=== PATIENT | male | born 1970 | race Caucasian/White ===

== ENCOUNTER 2023-03-12 10:17 | Inpatient (IN) ==
[2023-03-12] MEDS ORDERED: ALBUT/IPRATROP 3MG/0.5MG NEB 3 ML VIAL NEB STA ×2 (10:34→13:22)
--- NOTE | 2023-03-12 10:38 | Emergency Department Note ---
History of Present Illness General Chief complaint: Shortness of Breath/Dyspnea Time Seen by Provider: 03/12/23 10:26 History of Present Illness 52-year-old male with a history of cerebral palsy [facility] and EMS was called for respiratory distress. Reportedly patient has significant wheezing and cough. Patient was given DuoNeb x2 as well as 125 mg of IV Solu- Medrol. Patient denies any hemoptysis patient denies chest pain or fever. Patient denies prior history of pneumonia. Patient states he slightly improved after neb treatment. There are no other complaints. No other mitigating or al leviating factors Home Medications Medication Instructions Recorded Confirmed Type lisinopril 20 mg tablet 0 mg PO DAILY 01/16/20 01/02/21 History finasteride 5 mg tablet mg PO .Take one tablet daily 01/26/20 01/02/21 History gabapentin 300 mg capsule mg PO 01/26/20 01/02/21 History silodosin 8 mg capsule mg PO .TAKE 1 CAPSULE DAILY WITH 01/26/20 01/02/21 History FOOD. tramadol 50 mg tablet 50 mg PO 01/26/20 01/02/21 History finasteride 5 mg tablet 5 mg PO DAILY #90 tabs 01/02/21 01/02/21 Rx silodosin 8 mg capsule 8 mg PO DAILY #90 caps 06/13/22 Rx albuterol sulfate 90 mcg/actuation 1 inh inhalation Q4H PRN shortness 03/12/23 Rx aerosol inhaler of breath or wheezing #6.7 grams azithromycin 250 mg tablet See Rx Instructions PO .COMPLEX #6 03/12/23 Rx (Zithromax Z-Ced) tabs Allergies Allergy/AdvReac Type Severity Reaction Status Date / Time morphine Allergy Verified 01/02/21 09:14 Past Med/Surg History Medical History (Updated 03/12/23 @ 13:19 by Nba Zelaya DO) Cerebral palsy Hypertension Prostate enlargement Urinary retention Surgical History Hx of foot surgery Family History Mother Diabetes Father Cardiac disorder Hypertension Nephrolithiasis Brother Hypertension Nephrolithiasis Uncle Prostate cancer Other Colorectal cancer Social History Smoking Status: Former smoker Tobacco Type: Cigarettes Preferred Language: Botswanan marital status: Feels Safe at Home: Yes Review of Systems A total of 10 systems reviewed and were otherwise negative Respiratory: + chest congestion and + dyspnea Physical Exam Vital Signs Vital Signs - 24 hr 03/12/23 10:32 03/12/23 10:35 03/12/23 10:35 Temperature 36.8 C Temperature Source Oral Pulse Rate 83 94 H Pulse Rate from SpO2 Sensor Respiratory Rate 26 H Respiratory Effort / Characteristics Short of Breath SOB on Exertion Spontaneous Short of Breath SOB on Exertion Respiratory Depth Normal Normal Respiratory Pattern Tachypnea Tachypnea Blood Pressure 165/90 H Blood Pressure Mean 115 Pulse Oximetry 88 L Oxygen Delivery Method Nasal Cannula Room Air Oxygen Flow Rate 4 Sepsis Recent Fever Within 48 Hours No Sepsis New/Unexplained Change in Mental Status No Sepsis Action Taken by Nursing No Action Required 03/12/23 10:30 03/12/23 11:00 03/12/23 11:15 Temperature Temperature Source Pulse Rate 82 77 78 Pulse Rate from SpO2 Sensor 83 76 79 Respiratory Rate 17 15 16 Respiratory Effort / Characteristics Respiratory Depth Respiratory Pattern Blood Pressure 158/97 H 165/90 H Blood Pressure Mean 117 115 Pulse Oximetry 94 98 95 Oxygen Delivery Method Oxygen Flow Rate Sepsis Recent Fever Within 48 Hours Sepsis New/Unexplained Change in Mental Status Sepsis Action Taken by Nursing 03/12/23 11:30 03/12/23 11:45 03/12/23 12:15 Temperature Temperature Source Pulse Rate 77 93 H 79 Pulse Rate from SpO2 Sensor 77 91 H 78 Respiratory Rate 13 16 14 Respiratory Effort / Characteristics Respiratory Depth Respiratory Pattern Blood Pressure 141/89 H 127/96 153/89 H Blood Pressure Mean 106 106 110 Pulse Oximetry 96 95 97 Oxygen Delivery Method Nasal Cannula Oxygen Flow Rate 4 4 4 Sepsis Recent Fever Within 48 Hours Sepsis New/Unexplained Change in Mental Status Sepsis Action Taken by Nursing 03/12/23 12:30 03/12/23 12:45 03/12/23 13:00 Temperature Temperature Source Pulse Rate 88 86 86 Pulse Rate from SpO2 Sensor 84 85 87 Respiratory Rate 17 16 16 Respiratory Effort / Characteristics Respiratory Depth Respiratory Pattern Blood Pressure 146/98 H 140/100 159/100 H Blood Pressure Mean 114 113 119 Pulse Oximetry 96 94 90 Oxygen Delivery Method Room Air Oxygen Flow Rate 4 Sepsis Recent Fever Within 48 Hours Sepsis New/Unexplained Change in Mental Status Sepsis Action Taken by Nursing GENERAL: Patient is awake alert in no acute distress patient is resting comfortably ; patient has audible wheezing EYES: The conjunctivae are clear. The pupils are round and reactive. EARS, NOSE, MOUTH AND THROAT: The nose is without any evidence of any deformity. Mucous membranes are moist. Tongue is midline. NECK: The neck is nontender and supple. RESPIRATORY: Normal respiratory effort, audible wheezing CARDIOVASCULAR: Regular rate and rhythm noted there no murmurs rubs or gallops normal S1 normal S2. GASTROINTESTINAL: The abdomen is soft. Abdomen is nontender. BACK: No midline tenderness or or step-off noted range of motion in flexion extension as well as rotation no signs of muscle spasm noted MUSCULOSKELETAL/EXTREMITIES: No signs of trauma SKIN: There is no obvious evidence of any rash. There are no petechiae, pallor or cyanosis noted. NEUROLOGIC: Patient is awake alert and oriented x3 Psych normal affect Course Reevaluation(s) Reevaluation #1: Patient is resting in no distress on repeat examination. Time: 12:35 Reevaluation #2: Patient had continued wheezing on repeat when taken off 4 L of oxygen he had a pulse oximetry that went below 90%. He is not in any respiratory distress ronan jules. Patient was then given another DuoNeb treatment. Patient will be admitted Time: 13:44 Consultations Consultation #1: [facility]ol[facility] Time: 13:44 Administered Medications Discontinued Medications Albuterol (Albut/Ipratrop 3mg/0.5mg Neb 3 Ml Vial) 3 ml NEB NOW STA; Protocol Stop: 03/12/23 10:35 Last Admin: 03/12/23 10:54 Dose: 3 ml Documented By: TK Albuterol (Albut/Ipratrop 3mg/0.5mg Neb 3 Ml Vial) 3 ml NEB NOW STA; Protocol Stop: 03/12/23 13:23 Last Admin: 03/12/23 13:29 Dose: 3 ml Documented By: JEREMY Critical Care Time Critical Care Time: Yes Total Critical Care Time: 35 I have personally spent greater than 35 minutes of critical care time in the direct management of this patient. This includes bedside care, interpretation of diagnostic studies, and testing, discussion with consultants, patient, and family members, and other required patient management activities. These minutes are in excess of all separately billable procedures. Medical Decision Making Medical Records Attestation: I reviewed the patient's medical records. Home Medications Current Medication List: was personally reviewed by me Laboratory Data Attestation: I reviewed the patient's lab results. Labs interpreted by me unremarkable 03/12/23 10:35 03/12/23 10:35 Lab Results 03/12/23 03/12/23 03/12/23 Range/Units 10:35 10:35 10:35 WBC 8.17 (4.8-10.8) K/ul RBC 5.68 (4.70-6.10) M/uL Hgb 16.4 (14.0-18.0) g/dl Hct 48.6 (42.0-52.0) % MCV 85.6 (80.0-100.0) fL MCH 28.9 (25.0-34.0) pg MCHC 33.7 (32.0-36.0) g/dL RDW Std Deviation 42.1 (36.4-46.3) fL RDW Coeff of Tha 13.7 (11.5-14.5) % Plt Count 311 (130-400) K/uL MPV 10.7 (9.4-12.4) fL Immature Gran % (Auto) 0.2 % Neut % (Auto) 48.4 % Lymph % (Auto) 29.3 % [place] % (Auto) 5.6 % Eos % (Auto) 14.9 % Baso % (Auto) 1.6 % Neut # (Auto) 3.95 (1.40-6.50) K/uL Lymph # (Auto) 2.39 (1.2-3.4) K/uL [place] # (Auto) 0.46 (0.11-0.59) K/uL Eos # (Auto) 1.22 H (0-0.50) K/uL Baso # (Auto) 0.13 (0-0.2) K/uL Immature Gran # (Auto) 0.02 (0.01-0.20) K/uL Sodium 142 (136-145) mmol/L Potassium 3.4 L (3.5-5.1) mmol/L Chloride 106 (98-107) mmol/L Carbon Dioxide 24 (21-32) mmol/L Anion Gap 12 H (3-11) BUN 12 (6-23) mg/dl Creatinine 0.81 (0.6-1.4) mg/dl Est Cr Clr Drug Dosing 90.5 ml/min Est GFR ( Amer) 116.8 ml/min Est GFR (Non-Af Amer) 100.8 ml/min BUN/Creatinine Ratio 14.8 (10-20) Glucose 114 H (70-99(Fasting)) mg/dl Lactate (0.4-2.0) mmol/L Calcium 9.3 (8.6-10.3) mg/dl Magnesium 2.1 (1.7-2.4) mg/dl Total Bilirubin 0.8 (0.2-1.0) mg/dl Direct Bilirubin 0.2 (0-0.2) mg/dl AST 13 (13-39) U/L ALT 12 (7-52) U/L Alkaline Phosphatase 98 (34-104) U/L Troponin I High Sens 3.6 (0-20) pg/ml Total Protein 7.5 (6.0-8.3) gm/dl Albumin 4.4 (3.4-5.0) gm/dl Procalcitonin < 0.05 (0-0.5) ng/ml SARS-CoV-2, RNA, NAAT (NEGATIVE) 03/12/23 03/12/23 Range/Units 10:46 11:07 WBC (4.8-10.8) K/ul RBC (4.70-6.10) M/uL Hgb (14.0-18.0) g/dl Hct (42.0-52.0) % MCV (80.0-100.0) fL MCH (25.0-34.0) pg MCHC (32.0-36.0) g/dL RDW Std Deviation (36.4-46.3) fL RDW Coeff of Tha (11.5-14.5) % Plt Count (130-400) K/uL MPV (9.4-12.4) fL Immature Gran % (Auto) % Neut % (Auto) % Lymph % (Auto) % [place] % (Auto) % Eos % (Auto) % Baso % (Auto) % Neut # (Auto) (1.40-6.50) K/uL Lymph # (Auto) (1.2-3.4) K/uL [place] # (Auto) (0.11-0.59) K/uL Eos # (Auto) (0-0.50) K/uL Baso # (Auto) (0-0.2) K/uL Immature Gran # (Auto) (0.01-0.20) K/uL Sodium (136-145) mmol/L Potassium (3.5-5.1) mmol/L Chloride (98-107) mmol/L Carbon Dioxide (21-32) mmol/L Anion Gap (3-11) BUN (6-23) mg/dl Creatinine (0.6-1.4) mg/dl Est Cr Clr Drug Dosing ml/min Est GFR ( Amer) ml/min Est GFR (Non-Af Amer) ml/min BUN/Creatinine Ratio (10-20) Glucose (70-99(Fasting)) mg/dl Lactate 1.2 (0.4-2.0) mmol/L Calcium (8.6-10.3) mg/dl Magnesium (1.7-2.4) mg/dl Total Bilirubin (0.2-1.0) mg/dl Direct Bilirubin (0-0.2) mg/dl AST (13-39) U/L ALT (7-52) U/L Alkaline Phosphatase (34-104) U/L Troponin I High Sens (0-20) pg/ml Total Protein (6.0-8.3) gm/dl Albumin (3.4-5.0) gm/dl Procalcitonin (0-0.5) ng/ml SARS-CoV-2, RNA, NAAT NEGATIVE (NEGATIVE) Imaging Data Attestation: I personally reviewed and interpreted this imaging study as follows : My Impression: Chest x-ray interpreted by me negative Radiologist's Impression: Chest X-Ray 03/12/23 10:35 XR chest 1V portable HISTORY: 52 years-old Male Sepsis acute sepsis COMPARISON: None TECHNIQUE: AP view of the chest FINDINGS: Mild right hemidiaphragmatic elevation. Cardiomediastinal and hilar silhouettes are within normal limits. No pneumothorax, pleural effusion, airspace consolidation or pulmonary edema. Bones appear grossly intact. IMPRESSION: No acute process. ACT 112: Negative or not required by law. The above report was generated using voice recognition software. It may contain grammatical, syntax or spelling errors. Electronically signed by: Gabriel Garcia M.D. 03/12/2023 10:56 AM ECG Data Attestation: I personally reviewed and interpreted this ECG as follows: Additional Comments: EKG interpreted by me, normal sinus rhythm rate of 85, normal intervals normal axis, no obvious ST segment elevation or depression Telemetry interpreted by me is normal sinus rhythm rate of 85 MDM Narrative Medical decision making differential diagnosis includes pneumonia, bronchitis, upper respiratory tract infection, COPD, CHF, metabolic derangement, cardiac dysrhythmia Plan is to check labs, initiate sepsis protocol, DuoNeb treatment patient has received IV Solu-Medrol by EMS prior to arrival External medical records were reviewed by me from the [facility] Patient has normal labs, I do not suspect sepsis, the patient has no evidence of pneumonia, patient continues to have bronchiolitis and hypoxia, was given DuoNebs and IV Solu-Medrol. I will admit for further evaluation and treatment due to hypoxia and bronchiolitis Impression & Plan Bronchitis, Hypoxia, Bronchiolitis Discharge Plan Visit Data Chief Complaint: Shortness of Breath/Dyspnea ED Provider: Nba Zelaya Discharge Problem: Bronchitis, Hypoxia, Bronchiolitis Patient Disposition: Admitted As Inpatient Forms Stand Alone Forms: My [facility], Virtual Emergency Department, Important Visit Information Prescriptions Prescriptions: New albuterol sulfate 90 mcg/actuation HFA aerosol inhaler 1 inh inhalation Q4H PRN (Reason: shortness of breath or wheezing) Qty: 6.7 0RF azithromycin [Zithromax Z-Ced] 250 mg tablet See Rx Instructions .ROUTE .COMPLEX Qty: 6 0RF Rx Instructions: For 250 mg dose pack: take 500 mg today (day 1), then 250 mg for 4 days (days 2-5) No Action silodosin 8 mg capsule 8 mg PO DAILY Qty: 90 3RF Rx Instructions: must administer with a meal/food finasteride 5 mg tablet 5 mg PO DAILY Qty: 90 3RF gabapentin 300 mg capsule PO tramadol 50 mg tablet 50 mg PO silodosin 8 mg capsule PO .TAKE 1 CAPSULE DAILY WITH FOOD. finasteride 5 mg tablet PO .Take one tablet daily lisinopril 20 mg tablet 0 mg PO DAILY Referrals Referrals: Ryann Grady PA-C [Outside Practitioners] -
--- NOTE | 2023-03-12 10:57 | XRay Report ---
XR chest 1V portable HISTORY: 52 years-old Male Sepsis acute sepsis COMPARISON: None TECHNIQUE: AP view of the chest FINDINGS: Mild right hemidiaphragmatic elevation. Cardiomediastinal and hilar silhouettes are within normal lira its. No pneumothorax, pleural effusion, airspace consolidation or pulmonary edema. Bones appear gross ly intact. IMPRESSION: No acute process. ACT 112: Negative or not required by law. The above report was generated using voice recognition software. It may contain grammatical, syntax o r spelling errors. Electronically signed by: Gabriel Garcia M.D. 03/12/2023 10:56 AM
[2023-03-12 11:17] LABS: Basophils # (auto) 0.13 K/uL (0-0.2); Basophils % (auto) 1.6 %; Eosinophils # (auto) 1.22 K/uL (0-0.50); Eosinophils % (auto) 14.9 %; Hematocrit (blood only) 48.6 % (42.0-52.0); Hemoglobin 16.4 g/dl (14.0-18.0); Immature Granulocytes # (auto) 0.02 K/uL (0.01-0.20); Immature Granulocytes % (auto) 0.2 %; Lymphocytes # (auto) 2.39 K/uL (1.2-3.4); Lymphocytes % (auto) 29.3 %; Mean Corpuscular Hemoglobin 28.9 pg (25.0-34.0); Mean Corpuscular Hgb Conc 33.7 g/dL (32.0-36.0); Mean Corpuscular Volume 85.6 fL (80.0-100.0); Mean Platelet Volume 10.7 fL (9.4-12.4); Monocytes # (auto) 0.46 K/uL (0.11-0.59); Monocytes % (auto) 5.6 %; Neutrophils # (auto) 3.95 K/uL (1.40-6.50); Neutrophils % (auto) 48.4 %; Platelet Count 311 K/uL (130-400); RDW Coefficient of Variation 13.7 % (11.5-14.5); RDW Standard Deviation 42.1 fL (36.4-46.3); Red Blood Count 5.68 M/uL (4.70-6.10); White Blood Count 8.17 K/ul (4.8-10.8)
[2023-03-12 11:25] LABS: Albumin Level 4.4 gm/dl (3.4-5.0); BUN Creatinine Ratio 14.8 (10-20); Bilirubin Direct 0.2 mg/dl (0-0.2); Bilirubin,Total 0.8 mg/dl (0.2-1.0); Calcium 9.3 mg/dl (8.6-10.3); Creatinine Clr Calc Pharmacy 90.5 ml/min; Est GFR (African American) 116.8 ml/min; Est GFR (Non-African American) 100.8 ml/min; Magnesium 2.1 mg/dl (1.7-2.4); Potassium 3.4 mmol/L (3.5-5.1); Total Protein 7.5 gm/dl (6.0-8.3)
[2023-03-12 11:30] LABS: Troponin I High Sensitivity 3.6 pg/ml (0-20)
--- NOTE | 2023-03-12 13:59 | History & Physical Report ---
Date of Service March 12, 2023 Assessment & Plan (1) Acute respiratory failure with hypoxia: Plan: Patient is a 52-year-old male with PMH cerebral palsy, uses wheelchair, HTN, BPH presented to ER from PCP's office for SOB, ongoing cough and wheezing x months. Failed 3 courses outpatient doxycycline, course of prednisone. In clinic today noted to be SOB and hypoxic. In ER afebrile, 88% on RA up to 94% on 4L oxygen, P: 106. No leukocytosis, Lactate and procalcitonin WNL. ABG: pH: 7.43, pCO2:35, pO2: 84, HCO3: 23 Negative Biofire, SARS Cov 2 D-dimer:1060 DDX: bronchitis, COPD/asthma exacerbation, PE. Suspect possible underlying undiagnosed COPD or asthma with symptoms, history of tobacco use CTA chest to rule out PE Continue supplemental oxygen Solumedrol 40mg Q8H Azithromycin Scheduled nebs Consider pulmonology consult if no improvement CBC, BMP in am (2) Hypokalemia: Plan: K: 3.4 Replace and monitor (3) Hypertension: Plan: Continue lisinopril (4) Cerebral palsy: Plan: Uses wheelchair Continue gabapentin, tizanidine (5) Benign prostatic hyperplasia with urinary obstruction: Plan: Continue finasteride, silodosin DVT Prophylaxis Lovenox SQ Full Code as per discussion with pt Follows with Dixie Holguin PA-C for routine care Pt was seen and care coordinated with Dr Stenier. See addendum I spent a total of 80 minutes reviewing notes, outpatient records, labs, medication, coordinating, documenting and providing care for this patient excluding time spent in the performance of separately billed services. (6) Acute urinary retention: History of Present Illness Chief Complaint: Cough Primary Care Provider: Dixie Holguin PA-C Patient is a 52-year-old male with PMH cerebral palsy, uses wheelchair, HTN, BPH presented to ER from PCP's office for SOB. History obtained from patient and chart review. Patient states for the last several months he has been having ongoing cough. Reports several months ago started with slight sore throat, nasal congestion, cough. Reports sore throat and nasal congestion have resolved. Cough has continued. Cough is productive of clear sputum. Per outpatient chart review seen at PCPs office 01/15/2023 for cough for several months and was started on doxycycline x 7 days and albuterol inhaler for suspected bronchitis. 01/27/23 given additional doxycycline course. Seen again on 02/13/2023 for cough, wheezing, nasal congestion. He was given doxycycline x10 days, prednisone taper, and had been using albuterol inhaler. Patient states despite these treatments cough has continued. He has been using albuterol inhaler 1-2 times a day with some improvement of cough however limited relief. H states he does not feel he is short of breath however has noted wheezing. He reports initially several months ago did not have wheezing however wheezing has progressed. In clinic today patient was noted to be short of breath, diffuse wheezing. It is reported patient's pulse ox in the high 80s and went up to 90% on 4 L. EMS was called and patient was given 2 DuoNebs in route. In ER 88% on RA up to 94% on 4L oxygen via NC. Patient given additional albuterol neb treatment in ER. Patient states feels like wheezing less. He states does not feel SOB but endorses has not noted SOB. Denies fever/chills, diaphoresis, N/V/D/C, [place], dizziness, syncope, vision changes, neck pain, CP, orthopnea, palpitations, hemoptysis, choking, otalgia, abdominal pain, paresthesias, extremity edema, rashes, urinary symptoms. History smoking 1/2ppd x 30 years, Quit 5 years ago Allergies Allergy/AdvReac Type Severity Reaction Status Date / Time morphine Allergy Verified 01/02/21 09:14 Home Medications Medication Instructions Recorded Confirmed Type lisinopril 20 mg tablet 20 mg PO DAILY 01/16/20 03/12/23 History gabapentin 300 mg capsule 300 mg PO TID 01/26/20 03/12/23 History finasteride 5 mg tablet 5 mg PO DAILY #90 tabs 01/02/21 03/12/23 Rx silodosin 8 mg capsule 8 mg PO DAILY #90 caps 06/13/22 03/12/23 Rx albuterol sulfate 90 mcg/actuation 1 inh inhalation Q4H PRN shortness 03/12/23 Rx aerosol inhaler of breath or wheezing #6.7 grams levocetirizine 5 mg tablet 5 mg PO HS 03/12/23 03/12/23 History mirtazapine 15 mg tablet 15 mg PO HS 03/12/23 03/12/23 History tizanidine 2 mg tablet 1 mg PO Q6H PRN Muscle Spasm 03/12/23 03/12/23 History Past Med/Surg History Medical History (Updated 03/12/23 @ 17:19 by Mandy Diaz PA-C) Cerebral palsy Hypertension Prostate enlargement Urinary retention Surgical History Hx of foot surgery Family History Mother Diabetes Father Cardiac disorder Hypertension Nephrolithiasis Brother Hypertension Nephrolithiasis Uncle Prostate cancer Other Colorectal cancer Social History Smoking Status: Former smoker Tobacco Type: Cigarettes Hx Alcohol Use: No Hx Substance Use: No Preferred Language: Tajik [employer] 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 Required: No Beliefs That Will Affect Care: None marital status: Current Living Situation: Alone Feels Safe at Home: Yes Assistive Devices: Glasses and Wheelchair Review of Systems Review of Systems: All systems reviewed & are unremarkable except as noted in HPI & below Physical Exam Physical Exam: General: no apparent distress, WDWN Head: normocephalic, atraumatic Eyes: conjunctiva non-injected, anicteric ENT: normal inspection external ears, nose, mucous membranes moist Neck: supple, trachea midline Lungs: no apparent respiratory distress on 3L oxygen via NC, able to speak in sentences, +diffuse wheezing, no rhonchi/rales noted CV: RRR, no murmur, no pretibial edema Abd: normal BS, soft, non-tender Ext: no cyanosis, no calf tenderness Neuro: A&O x 3, LE weakness (chronic) no other focal deficits noted, normal affect Skin: warm, dry Results & Data Results & Data Vital Signs (Past 12 Hours) Vital Signs Temp Pulse Resp BP Pulse Ox O2 Del Method O2 Flow Rate 03/12/23 13:00 86 16 159/100 H 90 Room Air 03/12/23 12:45 86 16 140/100 94 03/12/23 12:30 88 17 146/98 H 96 4 03/12/23 12:15 79 14 153/89 H 97 Nasal Cannula 4 03/12/23 11:45 93 H 16 127/96 95 4 03/12/23 11:30 77 13 141/89 H 96 4 03/12/23 11:15 78 16 95 03/12/23 11:00 77 15 165/90 H 98 03/12/23 10:30 82 17 158/97 H 94 03/12/23 10:35 36.8 C 94 H 26 H 165/90 H 88 L Room Air 03/12/23 10:35 Nasal Cannula 4 03/12/23 10:32 83 Laboratory Results Short CBC 03/12/23 Range/Units 10:35 WBC 8.17 (4.8-10.8) K/ul Hgb 16.4 (14.0-18.0) g/dl Hct 48.6 (42.0-52.0) % Plt Count 311 (130-400) K/uL BMP 03/12/23 10:35 Sodium 142 Potassium 3.4 L Chloride 106 Carbon Dioxide 24 BUN 12 Creatinine 0.81 Glucose 114 H Calcium 9.3 Liver Function 03/12/23 Range/Units 10:35 Total Bilirubin 0.8 (0.2-1.0) mg/dl Direct Bilirubin 0.2 (0-0.2) mg/dl AST 13 (13-39) U/L ALT 12 (7-52) U/L Alkaline Phosphatase 98 (34-104) U/L Albumin 4.4 (3.4-5.0) gm/dl Diagnostic Findings Chest X-Ray 03/12/23 10:35 XR chest 1V portable HISTORY: 52 years-old Male Sepsis acute sepsis COMPARISON: None TECHNIQUE: AP view of the chest FINDINGS: Mild right hemidiaphragmatic elevation. Cardiomediastinal and hilar silhouettes are within normal limits. No pneumothorax, pleural effusion, airspace consolidation or pulmonary edema. Bones appear grossly intact. IMPRESSION: No acute process. ACT 112: Negative or not required by law. The above report was generated using voice recognition software. It may contain grammatical, syntax or spelling errors. Electronically signed by: Gabriel Garcia M.D. 03/12/2023 10:56 AM ECG Rate (beats per minute): 85 Rhythm: sinus rhythm Additional Comments: per my interpretation Supervising Physician Co-Signing Physician Notes I have seen and examined the patient and have discussed the case with the provider above. I agree with the assessment and plan as stated with the following exceptions. 52 yo man with cerebral palsy presents with worsening respiratory symptoms and hypoxia. He reports a significant amount of mucous in his throat. Per outpatient record review, he was given multiple courses of doxycycline/pred taper without improvement. He was sent in from his PCP office and reports feeling better with the oxygen in place and after the breathing treatments. He denies significant cough, fevers, chills or SOB. Patient has CP and possibly some intellectual delay as a result limiting history. Records reveal he is wheelchair bound. He reports living alone. He quit smoking 5 years ago. On exam he has significant wheezing in the anterior lung weston bilaterally. Posterior breath sounds are clear with good diaphragmatic excursion. No increased respiratory effort. CV: S1/2 heard without murmur. Reg rate and rhythm, He appears euvolemic to dry. Mentating clearly and following instructions. Workup in the ER reveals CBC with normal WBC count but with evidence of peripheral eosinophilia. Possible undiagnosed asthma vs allergies given clinical picture? Per outpatient record review, he has never had a CBC with differential performed, so there is no baseline. Also, he has not had PFTs. Chem panel is WNL, blood gas is normal and biofire panel is negative. A CXR reveals no acute process. D dimer> [address] chest is pending to rule out PE. EKG reviewed by me and shows SR85 with no ST changes that would be consistent with acute ischemia. 1. Acute respiratory failure with Wheezing possibly 2/2 undiagnosed asthma or COPD with exacerbation 2. Peripheral eosinophilia 3. Cerebral palsy, with limited mobility As noted on H&P and above, he has failed 3 courses of outpatient prednisone and doxycycline. Agree with intravenous steroids, intravenous azithromycin and nebulized bronchodilators. Wean off oxygen as tolerated. Repeat CBC with diff in am to monitor eosinophilia. May be prudent to see pulmonology or an seo executive if he has a history of recurrent pulmonary issues. Defer to PCP. Outpatient PFTs recommended after current exacerbation is resolved. Cont supportive care efforts and monitor clinical response to therapy. Acute urinary retention seen in ER with falk placed. He was started on flomax and has a h/o this in records. UA sample has yet to be collected. RN notified to collect as able. DO Jatin
[2023-03-12 15:29] LABS: Adenovirus PCR Not Detected (NotDetected); Bordetella parapertussis PCR Not Detected (NotDetected); Bordetella pertussis PCR Not Detected (NotDetected); Chlamydia pneumoniae PCR Not Detected (NotDetected); Coronavirus 229E PCR Not Detected (NotDetected); Coronavirus CoV-2 (COVID19)PCR Not Detected (NotDetected); Coronavirus HKU1 PCR Not Detected (NotDetected); Coronavirus NL63 PCR Not Detected (NotDetected); Coronavirus OC43PCR Not Detected (NotDetected); Human Metapneumovirus PCR Not Detected (NotDetected); Influenza A PCR Not Detected (NotDetected); Influenza B PCR Not Detected (NotDetected); Mycoplasma pneumoniae PCR Not Detected (NotDetected); Parainfluenza Virus 1 PCR Not Detected (NotDetected); Parainfluenza Virus 2 PCR Not Detected (NotDetected); Parainfluenza Virus 3 PCR Not Detected (NotDetected); Parainfluenza Virus 4 PCR Not Detected (NotDetected); Respiratory Syncytial VirusPCR Not Detected (NotDetected); Rhinovirus/Enterovirus PCR Not Detected (NotDetected)
[2023-03-12 15:50] LABS: Base Excess ABG -0.6 mEq/L (-9-1.8); HCO3 ABG 23 mmol/L (19-24); Oxygen Saturation ABG 98.5 % (90-95); PCO2 ABG 35 mmHg (35-46); PO2 ABG 84 mmHg (80-95); pH ABG 7.43 (7.35-7.45)
[2023-03-12 15:55] LABS: Allen Test POS (Pos)
[2023-03-12 16:30] LABS: D Dimer 1060 ug/L FEU (0-500)
--- NOTE | 2023-03-12 17:19 | Communication Note ---
Date of Service: March 12, 2023 ATTENDING ADDENDUM TO H&P: 52 yo man with cerebral palsy presents with worsening respiratory symptoms and hypoxia. He reports a significant amount of mucous in his throat. Per outpatient record review, he was given multiple courses of doxycycline/pred taper without improvement. He was sent in from his PCP office and reports feeling better with the oxygen in place and after the breathing treatments. He denies significant cough, fevers, chills or SOB. Patient has CP and possibly some intellectual delay as a result limiting history. Records reveal he is wheelchair bound. He reports living alone. He quit smoking 5 years ago. On exam he has significant wheezing in the anterior lung weston bilaterally. Posterior breath sounds are clear with good diaphragmatic excursion. No increased respiratory effort. CV: S1/2 heard without murmur. Reg rate and rhythm, He appears euvolemic to dry. Mentating clearly and following instructions. Workup in the ER reveals CBC with normal WBC count but with evidence of peripheral eosinophilia. Possible undiagnosed asthma vs allergies given clinical picture? Per outpatient record review, he has never had a CBC with differential performed, so there is no baseline. Also, he has not had PFTs. Chem panel is WNL, blood gas is normal and biofire panel is negative. A CXR reveals no acute process. D dimer> [address] chest is pending to rule out PE. EKG reviewed by me and shows SR85 with no ST changes that would be consistent with acute ischemia. 1. Acute respiratory failure with Wheezing possibly 2/2 undiagnosed asthma or COPD with exacerbation 2. Peripheral eosinophilia 3. Cerebral palsy, with limited mobility As noted on H&P and above, he has failed 3 courses of outpatient prednisone and doxycycline. Agree with intravenous steroids, intravenous azithromycin and nebulized bronchodilators. Wean off oxygen as tolerated. Repeat CBC with diff in am to monitor eosinophilia. May be prudent to see pulmonology or an public health dentist if he has a history of recurrent pulmonary issues. Defer to PCP. Outpatient PFTs recommended after current exacerbation is resolved. Cont supportive care efforts and monitor clinical response to therapy. DO Jatin
[2023-03-12] MEDS ORDERED: AZITHROMYCIN 500 MG in DEXTROSE 5% 250 ML IV ONE (17:30)
[2023-03-12] MEDS ORDERED: POLYETHYLENE (MIRALAX) 17 GM PACK PO PRN (18:30)
[2023-03-12] MEDS ORDERED: tiZANidine HCL 4 MG TABLET PO PRN (18:30)
[2023-03-12] MEDS ORDERED: PROMETHAZINE HCL 12.5 MG in SODIUM CHLORIDE 0.9% 50 ML IV PRN (18:30)
[2023-03-12] MEDS ORDERED: ACETAMINOPHEN 325 MG TAB PO PRN (18:30)
[2023-03-12] MEDS ORDERED: POTASSIUM CHLORIDE CRTAB 20 MEQ TABCR PO ONE (18:30)
[2023-03-12] MEDS ORDERED: XOPENEX/ATROVENT 1.25mg/0.5MG NEB COMBO NEB SCH (19:00)
[2023-03-12] MEDS: IPRATROPIUM BROMIDE NEB SOLN 0.02% 2.5 ML VIAL INH SCH (19:36)
[2023-03-12] MEDS: LEVALBUTEROL 1.25 MG/3 ML NEB NEB SCH (19:36)
[2023-03-12 20:28] LABS: Appearance Urine Clear (Clear); Bilirubin Urine Negative (Negative); Blood Urine Negative (Negative); Color Urine Yellow; Glucose Urine UA 3+ (Negative); Ketones Urine 3+ (Negative); Leukocyte Esterase Urine Negative (Negative); Nitrite Urine Negative (Negative); Protein Urine Negative (Negative); Specific Gravity Urine 1.022 (1.000-1.030); Urobilinogen Urine Negative (Negative); pH Urine 5.5 (4.5-7.5)
[2023-03-12] MEDS: methylPREDNISolone 40 MG in SYRINGE 0 ML IV SCH (20:47)
[2023-03-12] MEDS: TAMSULOSIN HCL 0.4 MG CAP PO SCH (20:47)
[2023-03-12] MEDS: GABAPENTIN 300 MG CAP PO SCH (20:47)
[2023-03-12] MEDS: CETIRIZINE HCL 10 MG TABLET PO SCH (20:48)
[2023-03-12] MEDS: MIRTAZAPINE TAB 15 MG TAB PO SCH (20:48)
[2023-03-12] MEDS ORDERED: IOVERSOL 350 MG 125mL Prefilled Syringe IV ONE (22:18)
--- NOTE | 2023-03-12 23:03 | CT Scan Report ---
Exam(s): CTA CHEST IV Amt: 117 ml optiray 350 EXAM: CT Angiography Chest With Intravenous Contrast CLINICAL HISTORY: Reason for exam: PE. TECHNIQUE: Axial computed tomographic angiography images of the chest with intravenous contrast. CTDI is 17.15 mGy and DLP is 553.85 mGy-cm. Automated exposure control was utilized for the study. A dose lowering technique was utilized adhering to the principles of ALARA. MIP reconstructed images were created and reviewed. COMPARISON: None. FINDINGS: Pulmonary arteries: Unremarkable. Normal aorta with no signs of dissection or aneurysm. Normal enhancement of the pulmonary arteries with no filling defect to suggest pulmonary embolus. Aorta: No acute findings. No thoracic aortic aneurysm. Lungs: Bilateral lower lobe atelectasis, right more than left. Mild bilateral lower lobe bronchiectasis . No mass. Pleural space: Mild biapical pleural thickening with subpleural scarring. Mild biapical subpleural emphysematous/cystic changes. . No significant effusion. No pneumothorax. Heart: Mild to moderate cardiomegaly. No significant pericardial effusion. No evidence of RV dysfunction. Bones/joints: No acute fracture. No dislocation. Soft tissues: Unremarkable. Lymph nodes: Unremarkable. No enlarged lymph nodes. Other findings: Nonspecific degenerative disease of the spine. Visualized upper abdominal structures are unremarkable. IMPRESSION: 1. No pulmonary embolus or aortic dissection. 2. Bilateral lower lobe atelectasis with mild bronchiectasis. Mild biapical pleural thickening with subpleural scarring and mild subpleural emphysematous changes. 3. Remainder of the lung weston are clear with no acute cardiopulmonary disease. Electronically signed by: Amelia Celeste MD 03/12/23 23:03 PM
[2023-03-13] MEDS: LEVALBUTEROL 1.25 MG/3 ML NEB NEB SCH ×3 (00:01→13:36)
[2023-03-13] MEDS: IPRATROPIUM BROMIDE NEB SOLN 0.02% 2.5 ML VIAL INH SCH ×3 (00:01→13:36)
[2023-03-13] MEDS: methylPREDNISolone 40 MG in SYRINGE 0 ML IV SCH ×3 (04:23→18:06)
[2023-03-13 06:40] LABS: Hematocrit (blood only) 41.9 % (42.0-52.0); Hemoglobin 14.2 g/dl (14.0-18.0); Mean Corpuscular Hemoglobin 29.3 pg (25.0-34.0); Mean Corpuscular Hgb Conc 33.9 g/dL (32.0-36.0); Mean Corpuscular Volume 86.4 fL (80.0-100.0); Mean Platelet Volume 10.1 fL (9.4-12.4); Platelet Count 320 K/uL (130-400); RDW Coefficient of Variation 13.7 % (11.5-14.5); RDW Standard Deviation 43.8 fL (36.4-46.3); Red Blood Count 4.85 M/uL (4.70-6.10); White Blood Count 10.87 K/ul (4.8-10.8)
[2023-03-13 07:02] LABS: BUN Creatinine Ratio 18.2 (10-20); Calcium 8.9 mg/dl (8.6-10.3); Creatinine Clr Calc Pharmacy 92.5 ml/min; Est GFR (African American) 119.2 ml/min; Est GFR (Non-African American) 102.9 ml/min
[2023-03-13 07:09] LABS: Basophils # (auto) 0.01 K/uL (0-0.2); Basophils % (auto) 0.1 %; Immature Granulocytes # (auto) 0.04 K/uL (0.01-0.20); Immature Granulocytes % (auto) 0.4 %; Lymphocytes # (auto) 0.59 K/uL (1.2-3.4); Lymphocytes % (auto) 5.4 %; Monocytes # (auto) 0.21 K/uL (0.11-0.59); Monocytes % (auto) 1.9 %; Neutrophils # (auto) 10.02 K/uL (1.40-6.50); Neutrophils % (auto) 92.2 %
[2023-03-13] MEDS: FINASTERIDE 5 MG TAB PO SCH (08:23)
[2023-03-13] MEDS: lisinopril 20 MG TAB PO SCH (08:23)
[2023-03-13] MEDS: GABAPENTIN 300 MG CAP PO SCH ×3 (08:23→20:04)
[2023-03-13] MEDS ORDERED: TAMSULOSIN HCL 0.4 MG CAP PO SCH (09:00)
--- NOTE | 2023-03-13 09:51 | Hospitalist Progress Note ---
Date of Service March 13, 2023 Assessment & Plan (1) Acute respiratory failure with hypoxia: Plan: Patient is a 52-year-old male with PMH cerebral palsy, uses wheelchair, HTN, BPH presented to ER from PCP's office for SOB, ongoing cough and wheezing x months. Failed 3 courses outpatient doxycycline, course of prednisone. In PCP clinic noted to be SOB and hypoxic. In ER afebrile, 88% on RA up to 94% on 4L oxygen, P: 106. No leukocytosis, Lactate and procalcitonin WNL. ABG: pH: 7.43, pCO2:35, pO2: 84, HCO3: 23 Negative Biofire, SARS Cov 2 D-dimer:1060 DDX: bronchitis, COPD/asthma exacerbation, PE. Suspect possible underlying undiagnosed COPD or asthma with symptoms, history of tobacco use CTA chest - negative for PE Continue supplemental oxygen Solumedrol 40mg Q8H Azithromycin Scheduled nebs Consider pulmonology consult if no improvement eosinophils noted on admission, on current cbc zero, cont. to monitor CBC, BMP in am (2) Hypokalemia: Plan: K: 3.4 on admission Replace and monitor (3) Hypertension: Plan: Continue lisinopril (4) Cerebral palsy: Plan: Uses wheelchair Continue gabapentin, tizanidine (5) Benign prostatic hyperplasia with urinary obstruction: Plan: Continue finasteride, silodosin DVT Prophylaxis Lovenox SQ Full Code as per discussion with pt Follows with Dixie Holguin PA-C for routine care (6) Acute urinary retention: Admission and Anticipated Discharge Date Admission Date: March 12, 2023 Subjective Pt seen in follow up of shortness of breath poss. COPD vs asthma Pt is a former smoker, hx of cerebral palsy Currently on 2L of suppl.O2, having a lot of cough, says sputum is clear No chest pain, or abd. pain Renteria placed in ED yesterday d/t urinary retention Review of Systems Review of Systems: All systems reviewed & are unremarkable except as noted in Subjective Physical Exam Physical Exam: General: WDWN in NAD, coughing, on 2L suppl. O2 Head: normocephalic, atraumatic Eyes: conjunctiva non-injected, anicteric ENT: normal inspection external ears, nose, mucous membranes moist Neck: supple, trachea midline Lungs: no apparent respiratory distress on 2L oxygen via NC, able to speak in sentences, +diffuse wheezing, no rhonchi/rales noted CV: RRR, no murmur, no pretibial edema Abd: normal BS, soft, non-tender Ext: no LE edema Neuro: A&O x 3, LE weakness (chronic) no other focal deficits noted, normal affect Skin: warm, dry Results & Data Results & Data Vital Signs (Past 12 Hours) Vital Signs Temp Pulse Pulse Resp BP Pulse Ox O2 Del Method 03/13/23 07:34 36.3 C L 114 H 17 144/72 H 94 Nasal Cannula 03/13/23 07:26 73 03/13/23 06:55 92 H 18 95 Nasal Cannula 03/13/23 03:00 36.5 C 92 H 18 102/63 96 Nasal Cannula 03/12/23 22:57 79 03/13/23 00:02 73 18 97 Nasal Cannula 03/12/23 23:00 36.6 C 90 20 168/90 H 94 Nasal Cannula O2 Flow Rate 03/13/23 07:34 2 03/13/23 07:26 03/13/23 06:55 2 03/13/23 03:00 4 03/12/23 22:57 03/13/23 00:02 2 03/12/23 23:00 4 Laboratory Results 03/13/23 03/13/23 03/12/23 Range/Units 06:09 06:09 20:10 WBC 10.87 H (4.8-10.8) K/ul RBC 4.85 (4.70-6.10) M/uL Hgb 14.2 (14.0-18.0) g/dl Hct 41.9 L (42.0-52.0) % MCV 86.4 (80.0-100.0) fL MCH 29.3 (25.0-34.0) pg MCHC 33.9 (32.0-36.0) g/dL RDW Std Deviation 43.8 (36.4-46.3) fL RDW Coeff of Tha 13.7 (11.5-14.5) % Plt Count 320 (130-400) K/uL MPV 10.1 (9.4-12.4) fL Immature Gran % (Auto) 0.4 % Neut % (Auto) 92.2 % Lymph % (Auto) 5.4 % [place] % (Auto) 1.9 % Eos % (Auto) 0.0 % Baso % (Auto) 0.1 % Neut # (Auto) 10.02 H (1.40-6.50) K/uL Lymph # (Auto) 0.59 L (1.2-3.4) K/uL [place] # (Auto) 0.21 (0.11-0.59) K/uL Eos # (Auto) 0.00 (0-0.50) K/uL Baso # (Auto) 0.01 (0-0.2) K/uL Immature Gran # (Auto) 0.04 (0.01-0.20) K/uL D-Dimer (0-500) ug/L FEU ABG pH (7.35-7.45) ABG pCO2 (35-46) mmHg ABG pO2 (80-95) mmHg ABG HCO3 (19-24) mmol/L ABG O2 Saturation (90-95) % ABG Base Excess (-9-1.8) mEq/L Charlie Test (Pos) Oxygen Given Sodium 139 (136-145) mmol/L Potassium 4.0 (3.5-5.1) mmol/L Chloride 109 H (98-107) mmol/L Carbon Dioxide 24 (21-32) mmol/L Anion Gap 6 (3-11) BUN 14 (6-23) mg/dl Creatinine 0.77 (0.6-1.4) mg/dl Est Cr Clr Drug Dosing 92.5 ml/min Est GFR ( Amer) 119.2 ml/min Est GFR (Non-Af Amer) 102.9 ml/min BUN/Creatinine Ratio 18.2 (10-20) Glucose 200 H (70-99(Fasting)) mg/dl Lactate (0.4-2.0) mmol/L Calcium 8.9 (8.6-10.3) mg/dl Magnesium (1.7-2.4) mg/dl Total Bilirubin (0.2-1.0) mg/dl Direct Bilirubin (0-0.2) mg/dl AST (13-39) U/L ALT (7-52) U/L Alkaline Phosphatase (34-104) U/L Troponin I High Sens (0-20) pg/ml Total Protein (6.0-8.3) gm/dl Albumin (3.4-5.0) gm/dl Procalcitonin (0-0.5) ng/ml Urine Color Yellow Urine Appearance Clear (Clear) Urine pH 5.5 (4.5-7.5) Ur Specific [place] 1.022 (1.000-1.030) Urine Protein Negative (Negative) Urine Glucose (UA) 3+ H (Negative) Urine Ketones 3+ H (Negative) Urine Blood Negative (Negative) Urine Nitrite Negative (Negative) Urine Bilirubin Negative (Negative) Urine Urobilinogen Negative (Negative) Ur Leukocyte Esterase Negative (Negative) Adenovirus (PCR) (NotDetected) B. pertussis DNA (PCR) (NotDetected) B.parapertussis DNA PCR (NotDetected) C. pneumoniae DNA (PCR) (NotDetected) Coronavirus OC43 (PCR) (NotDetected) Coronavirus HKU1 (PCR) (NotDetected) Coronavirus 229E (PCR) (NotDetected) SARS-CoV-2 (PCR) (NotDetected) Coronavirus NL63 (PCR) (NotDetected) Human Metapneumovir PCR (NotDetected) Influenza Type A (PCR) (NotDetected) Influenza Type B (PCR) (NotDetected) M. pneumoniae (PCR) (NotDetected) Parainfluenza 1 (PCR) (NotDetected) Parainfluenza 2 (PCR) (NotDetected) Parainfluenza 3 (PCR) (NotDetected) Parainfluenza 4 (PCR) (NotDetected) RSV (PCR) (NotDetected) Entero/Rhino (PCR) (NotDetected) SARS-CoV-2, RNA, NAAT (NEGATIVE) 03/12/23 03/12/23 03/12/23 Range/Units 15:28 15:28 14:15 WBC (4.8-10.8) K/ul RBC (4.70-6.10) M/uL Hgb (14.0-18.0) g/dl Hct (42.0-52.0) % MCV (80.0-100.0) fL MCH (25.0-34.0) pg MCHC (32.0-36.0) g/dL RDW Std Deviation (36.4-46.3) fL RDW Coeff of Tha (11.5-14.5) % Plt Count (130-400) K/uL MPV (9.4-12.4) fL Immature Gran % (Auto) % Neut % (Auto) % Lymph % (Auto) % [place] % (Auto) % Eos % (Auto) % Baso % (Auto) % Neut # (Auto) (1.40-6.50) K/uL Lymph # (Auto) (1.2-3.4) K/uL [place] # (Auto) (0.11-0.59) K/uL Eos # (Auto) (0-0.50) K/uL Baso # (Auto) (0-0.2) K/uL Immature Gran # (Auto) (0.01-0.20) K/uL D-Dimer 1060 H* (0-500) ug/L FEU ABG pH 7.43 (7.35-7.45) ABG pCO2 35 (35-46) mmHg ABG pO2 84 (80-95) mmHg ABG HCO3 23 (19-24) mmol/L ABG O2 Saturation 98.5 H (90-95) % ABG Base Excess -0.6 (-9-1.8) mEq/L Charlie Test POS (Pos) Oxygen Given 3 L Sodium (136-145) mmol/L Potassium (3.5-5.1) mmol/L Chloride (98-107) mmol/L Carbon Dioxide (21-32) mmol/L Anion Gap (3-11) BUN (6-23) mg/dl Creatinine (0.6-1.4) mg/dl Est Cr Clr Drug Dosing ml/min Est GFR ( Amer) ml/min Est GFR (Non-Af Amer) ml/min BUN/Creatinine Ratio (10-20) Glucose (70-99(Fasting)) mg/dl Lactate (0.4-2.0) mmol/L Calcium (8.6-10.3) mg/dl Magnesium (1.7-2.4) mg/dl Total Bilirubin (0.2-1.0) mg/dl Direct Bilirubin (0-0.2) mg/dl AST (13-39) U/L ALT (7-52) U/L Alkaline Phosphatase (34-104) U/L Troponin I High Sens (0-20) pg/ml Total Protein (6.0-8.3) gm/dl Albumin (3.4-5.0) gm/dl Procalcitonin (0-0.5) ng/ml Urine Color Urine Appearance (Clear) Urine pH (4.5-7.5) Ur Specific [place] (1.000-1.030) Urine Protein (Negative) Urine Glucose (UA) (Negative) Urine Ketones (Negative) Urine Blood (Negative) Urine Nitrite (Negative) Urine Bilirubin (Negative) Urine Urobilinogen (Negative) Ur Leukocyte Esterase (Negative) Adenovirus (PCR) Not Detected (NotDetected) B. pertussis DNA (PCR) Not Detected (NotDetected) B.parapertussis DNA PCR Not Detected (NotDetected) C. pneumoniae DNA (PCR) Not Detected (NotDetected) Coronavirus OC43 (PCR) Not Detected (NotDetected) Coronavirus HKU1 (PCR) Not Detected (NotDetected) Coronavirus 229E (PCR) Not Detected (NotDetected) SARS-CoV-2 (PCR) Not Detected (NotDetected) Coronavirus NL63 (PCR) Not Detected (NotDetected) Human Metapneumovir PCR Not Detected (NotDetected) Influenza Type A (PCR) Not Detected (NotDetected) Influenza Type B (PCR) Not Detected (NotDetected) M. pneumoniae (PCR) Not Detected (NotDetected) Parainfluenza 1 (PCR) Not Detected (NotDetected) Parainfluenza 2 (PCR) Not Detected (NotDetected) Parainfluenza 3 (PCR) Not Detected (NotDetected) Parainfluenza 4 (PCR) Not Detected (NotDetected) RSV (PCR) Not Detected (NotDetected) Entero/Rhino (PCR) Not Detected (NotDetected) SARS-CoV-2, RNA, NAAT (NEGATIVE) 03/12/23 03/12/23 03/12/23 Range/Units 11:07 10:46 10:35 WBC (4.8-10.8) K/ul RBC (4.70-6.10) M/uL Hgb (14.0-18.0) g/dl Hct (42.0-52.0) % MCV (80.0-100.0) fL MCH (25.0-34.0) pg MCHC (32.0-36.0) g/dL RDW Std Deviation (36.4-46.3) fL RDW Coeff of Tha (11.5-14.5) % Plt Count (130-400) K/uL MPV (9.4-12.4) fL Immature Gran % (Auto) % Neut % (Auto) % Lymph % (Auto) % [place] % (Auto) % Eos % (Auto) % Baso % (Auto) % Neut # (Auto) (1.40-6.50) K/uL Lymph # (Auto) (1.2-3.4) K/uL [place] # (Auto) (0.11-0.59) K/uL Eos # (Auto) (0-0.50) K/uL Baso # (Auto) (0-0.2) K/uL Immature Gran # (Auto) (0.01-0.20) K/uL D-Dimer (0-500) ug/L FEU ABG pH (7.35-7.45) ABG pCO2 (35-46) mmHg ABG pO2 (80-95) mmHg ABG HCO3 (19-24) mmol/L ABG O2 Saturation (90-95) % ABG Base Excess (-9-1.8) mEq/L Charlie Test (Pos) Oxygen Given Sodium (136-145) mmol/L Potassium (3.5-5.1) mmol/L Chloride (98-107) mmol/L Carbon Dioxide (21-32) mmol/L Anion Gap (3-11) BUN (6-23) mg/dl Creatinine (0.6-1.4) mg/dl Est Cr Clr Drug Dosing ml/min Est GFR ( Amer) ml/min Est GFR (Non-Af Amer) ml/min BUN/Creatinine Ratio (10-20) Glucose (70-99(Fasting)) mg/dl Lactate 1.2 (0.4-2.0) mmol/L Calcium (8.6-10.3) mg/dl Magnesium (1.7-2.4) mg/dl Total Bilirubin (0.2-1.0) mg/dl Direct Bilirubin (0-0.2) mg/dl AST (13-39) U/L ALT (7-52) U/L Alkaline Phosphatase (34-104) U/L Troponin I High Sens (0-20) pg/ml Total Protein (6.0-8.3) gm/dl Albumin (3.4-5.0) gm/dl Procalcitonin < 0.05 (0-0.5) ng/ml Urine Color Urine Appearance (Clear) Urine pH (4.5-7.5) Ur Specific [place] (1.000-1.030) Urine Protein (Negative) Urine Glucose (UA) (Negative) Urine Ketones (Negative) Urine Blood (Negative) Urine Nitrite (Negative) Urine Bilirubin (Negative) Urine Urobilinogen (Negative) Ur Leukocyte Esterase (Negative) Adenovirus (PCR) (NotDetected) B. pertussis DNA (PCR) (NotDetected) B.parapertussis DNA PCR (NotDetected) C. pneumoniae DNA (PCR) (NotDetected) Coronavirus OC43 (PCR) (NotDetected) Coronavirus HKU1 (PCR) (NotDetected) Coronavirus 229E (PCR) (NotDetected) SARS-CoV-2 (PCR) (NotDetected) Coronavirus NL63 (PCR) (NotDetected) Human Metapneumovir PCR (NotDetected) Influenza Type A (PCR) (NotDetected) Influenza Type B (PCR) (NotDetected) M. pneumoniae (PCR) (NotDetected) Parainfluenza 1 (PCR) (NotDetected) Parainfluenza 2 (PCR) (NotDetected) Parainfluenza 3 (PCR) (NotDetected) Parainfluenza 4 (PCR) (NotDetected) RSV (PCR) (NotDetected) Entero/Rhino (PCR) (NotDetected) SARS-CoV-2, RNA, NAAT NEGATIVE (NEGATIVE) 03/12/23 03/12/23 Range/Units 10:35 10:35 WBC 8.17 (4.8-10.8) K/ul RBC 5.68 (4.70-6.10) M/uL Hgb 16.4 (14.0-18.0) g/dl Hct 48.6 (42.0-52.0) % MCV 85.6 (80.0-100.0) fL MCH 28.9 (25.0-34.0) pg MCHC 33.7 (32.0-36.0) g/dL RDW Std Deviation 42.1 (36.4-46.3) fL RDW Coeff of Tha 13.7 (11.5-14.5) % Plt Count 311 (130-400) K/uL MPV 10.7 (9.4-12.4) fL Immature Gran % (Auto) 0.2 % Neut % (Auto) 48.4 % Lymph % (Auto) 29.3 % [place] % (Auto) 5.6 % Eos % (Auto) 14.9 % Baso % (Auto) 1.6 % Neut # (Auto) 3.95 (1.40-6.50) K/uL Lymph # (Auto) 2.39 (1.2-3.4) K/uL [place] # (Auto) 0.46 (0.11-0.59) K/uL Eos # (Auto) 1.22 H (0-0.50) K/uL Baso # (Auto) 0.13 (0-0.2) K/uL Immature Gran # (Auto) 0.02 (0.01-0.20) K/uL D-Dimer (0-500) ug/L FEU ABG pH (7.35-7.45) ABG pCO2 (35-46) mmHg ABG pO2 (80-95) mmHg ABG HCO3 (19-24) mmol/L ABG O2 Saturation (90-95) % ABG Base Excess (-9-1.8) mEq/L Charlie Test (Pos) Oxygen Given Sodium 142 (136-145) mmol/L Potassium 3.4 L (3.5-5.1) mmol/L Chloride 106 (98-107) mmol/L Carbon Dioxide 24 (21-32) mmol/L Anion Gap 12 H (3-11) BUN 12 (6-23) mg/dl Creatinine 0.81 (0.6-1.4) mg/dl Est Cr Clr Drug Dosing 90.5 ml/min Est GFR ( Amer) 116.8 ml/min Est GFR (Non-Af Amer) 100.8 ml/min BUN/Creatinine Ratio 14.8 (10-20) Glucose 114 H (70-99(Fasting)) mg/dl Lactate (0.4-2.0) mmol/L Calcium 9.3 (8.6-10.3) mg/dl Magnesium 2.1 (1.7-2.4) mg/dl Total Bilirubin 0.8 (0.2-1.0) mg/dl Direct Bilirubin 0.2 (0-0.2) mg/dl AST 13 (13-39) U/L ALT 12 (7-52) U/L Alkaline Phosphatase 98 (34-104) U/L Troponin I High Sens 3.6 (0-20) pg/ml Total Protein 7.5 (6.0-8.3) gm/dl Albumin 4.4 (3.4-5.0) gm/dl Procalcitonin (0-0.5) ng/ml Urine Color Urine Appearance (Clear) Urine pH (4.5-7.5) Ur Specific [place] (1.000-1.030) Urine Protein (Negative) Urine Glucose (UA) (Negative) Urine Ketones (Negative) Urine Blood (Negative) Urine Nitrite (Negative) Urine Bilirubin (Negative) Urine Urobilinogen (Negative) Ur Leukocyte Esterase (Negative) Adenovirus (PCR) (NotDetected) B. pertussis DNA (PCR) (NotDetected) B.parapertussis DNA PCR (NotDetected) C. pneumoniae DNA (PCR) (NotDetected) Coronavirus OC43 (PCR) (NotDetected) Coronavirus HKU1 (PCR) (NotDetected) Coronavirus 229E (PCR) (NotDetected) SARS-CoV-2 (PCR) (NotDetected) Coronavirus NL63 (PCR) (NotDetected) Human Metapneumovir PCR (NotDetected) Influenza Type A (PCR) (NotDetected) Influenza Type B (PCR) (NotDetected) M. pneumoniae (PCR) (NotDetected) Parainfluenza 1 (PCR) (NotDetected) Parainfluenza 2 (PCR) (NotDetected) Parainfluenza 3 (PCR) (NotDetected) Parainfluenza 4 (PCR) (NotDetected) RSV (PCR) (NotDetected) Entero/Rhino (PCR) (NotDetected) SARS-CoV-2, RNA, NAAT (NEGATIVE) Medications Administered Current Inpatient Medications Acetaminophen (Acetaminophen 325 Mg Tab) 650 mg PO Q4H PRN PRN Reason: Pain or Fever Stop: 04/11/23 18:29 Cetirizine HCl (Cetirizine Hcl 10 Mg Tablet) 10 mg PO HS CATHY Stop: 04/11/23 20:59 Last Admin: 03/12/23 20:48 Dose: 10 mg Finasteride (Finasteride 5 Mg Tab) 5 mg PO DAILY CATHY Stop: 04/12/23 08:59 Last Admin: 03/13/23 08:23 Dose: 5 mg Gabapentin (Gabapentin 300 Mg Cap) 300 mg PO TID CATHY Stop: 04/11/23 20:59 Last Admin: 03/13/23 08:23 Dose: 300 mg Promethazine HCl 12.5 mg/ (Sodium Chloride) 50.5 mls @ 202 mls/hr IV Q6H PRN PRN Reason: Nausea And Vomiting Stop: 03/14/23 18:29 Azithromycin 500 mg/ Dextrose 255 mls @ 127.5 mls/hr IV Q24H CATHY Stop: 03/20/23 18:44 Methylprednisolone 40 mg/ (Syringe) 0.64 mls @ 1.5 mls/min IV Q8H CATHY Stop: 04/11/23 18:59 Last Admin: 03/13/23 04:23 Dose: 1.5 mls/min Ipratropium [place] (Ipratropium [place] Neb Soln 0.02% 2.5 Ml Vial) 0.5 mg INH Q6R CATHY Stop: 04/11/23 18:59 Last Admin: 03/13/23 06:54 Dose: 0.5 mg Levalbuterol HCl (Levalbuterol 1.25 Mg/3 Ml Neb) 1.25 mg NEB Q6R CATHY Stop: 04/11/23 18:59 Last Admin: 03/13/23 06:55 Dose: 1.25 mg Lisinopril (Lisinopril 20 Mg Tab) 20 mg PO DAILY CATHY Stop: 04/12/23 08:59 Last Admin: 03/13/23 08:23 Dose: 20 mg Mirtazapine (Mirtazapine Tab 15 Mg Tab) 15 mg PO HS CATHY Stop: 04/11/23 20:59 Last Admin: 03/12/23 20:48 Dose: 15 mg Polyethylene Glycol (Polyethylene (Miralax) 17 Gm Pack) 17 gm PO DAILY PRN PRN Reason: Constipation Stop: 04/11/23 18:29 Tamsulosin HCl (Tamsulosin Hcl 0.4 Mg Cap) 0.4 mg PO [facility] Stop: 04/11/23 20:59 Last Admin: 03/12/23 20:47 Dose: 0.4 mg Tizanidine HCl (Tizanidine Hcl 4 Mg Tablet) 1 mg PO Q6H PRN PRN Reason: Muscle Spasm Stop: 04/11/23 18:29
[2023-03-13] MEDS: guaiFENesin 600 MG TABCR PO SCH ×2 (13:16→20:05)
[2023-03-13] MEDS: AZITHROMYCIN 500 MG in DEXTROSE 5% 250 ML IV SCH (18:06)
[2023-03-13] MEDS: MIRTAZAPINE TAB 15 MG TAB PO SCH (20:04)
[2023-03-13] MEDS: CETIRIZINE HCL 10 MG TABLET PO SCH (20:04)
[2023-03-13] MEDS: TAMSULOSIN HCL 0.4 MG CAP PO SCH (20:04)
[2023-03-13] MEDS: LEVALBUTEROL 1.25 MG/3 ML NEB NEB PRN (20:18)
[2023-03-14] MEDS: methylPREDNISolone 40 MG in SYRINGE 0 ML IV SCH ×3 (03:15→18:06)
[2023-03-14] MEDS: LEVALBUTEROL 1.25 MG/3 ML NEB NEB PRN ×3 (04:55→12:47)
[2023-03-14 06:51] LABS: Hematocrit (blood only) 42.6 % (42.0-52.0); Hemoglobin 14.3 g/dl (14.0-18.0); Mean Corpuscular Hemoglobin 28.8 pg (25.0-34.0); Mean Corpuscular Hgb Conc 33.6 g/dL (32.0-36.0); Mean Corpuscular Volume 85.9 fL (80.0-100.0); Mean Platelet Volume 10.9 fL (9.4-12.4); Platelet Count 337 K/uL (130-400); RDW Coefficient of Variation 14.1 % (11.5-14.5); Red Blood Count 4.96 M/uL (4.70-6.10); White Blood Count 18.59 K/ul (4.8-10.8)
[2023-03-14 07:13] LABS: BUN Creatinine Ratio 18.9 (10-20); Calcium 9.3 mg/dl (8.6-10.3); Creatinine Clr Calc Pharmacy 96.5 ml/min; Est GFR (African American) 121.2 ml/min; Est GFR (Non-African American) 104.6 ml/min; Magnesium 2.2 mg/dl (1.7-2.4); Phosphorus 2.6 mg/dl (2.5-4.9); Potassium 3.8 mmol/L (3.5-5.1)
[2023-03-14] MEDS: FINASTERIDE 5 MG TAB PO SCH (07:24)
[2023-03-14] MEDS: lisinopril 20 MG TAB PO SCH (07:24)
[2023-03-14] MEDS: guaiFENesin 600 MG TABCR PO SCH ×2 (07:24→21:30)
[2023-03-14] MEDS: GABAPENTIN 300 MG CAP PO SCH ×3 (07:24→21:30)
[2023-03-14 07:44] LABS: Basophils # (auto) 0.02 K/uL (0-0.2); Basophils % (auto) 0.1 %; Echinocytes 1+; Immature Granulocytes # (auto) 0.09 K/uL (0.01-0.20); Immature Granulocytes % (auto) 0.5 %; Lymphocytes # (auto) 0.76 K/uL (1.2-3.4); Lymphocytes % (auto) 4.1 %; Monocytes # (auto) 0.49 K/uL (0.11-0.59); Monocytes % (auto) 2.6 %; Neutrophils # (auto) 17.23 K/uL (1.40-6.50); Neutrophils % (auto) 92.7 %
[2023-03-14] MEDS: IPRATROPIUM BROMIDE NEB SOLN 0.02% 2.5 ML VIAL INH PRN ×2 (07:56→12:47)
--- NOTE | 2023-03-14 09:09 | Hospitalist Progress Note ---
Date of Service March 14, 2023 Assessment & Plan (1) Acute respiratory failure with hypoxia: Plan: Patient is a 52-year-old male with PMH cerebral palsy, uses wheelchair, HTN, BPH presented to ER from PCP's office for SOB, ongoing cough and wheezing x months. Failed 3 courses outpatient doxycycline, course of prednisone. In PCP clinic noted to be SOB and hypoxic. In ER afebrile, 88% on RA up to 94% on 4L oxygen, P: 106. No leukocytosis, Lactate and procalcitonin WNL. ABG: pH: 7.43, pCO2:35, pO2: 84, HCO3: 23 Negative Biofire, SARS Cov 2 D-dimer:1060 DDX: bronchitis, COPD/asthma exacerbation, PE. Suspect possible underlying undiagnosed COPD or asthma with symptoms, history of tobacco use CTA chest - negative for PE Continue supplemental oxygen Solumedrol 40mg Q8H Azithromycin nebs prn Consider pulmonology consult if no improvement eosinophils noted on admission, on current cbc zero, cont. to monitor CBC, BMP in am (2) Hypokalemia: Plan: K: 3.4 on admission Replace and monitor (3) Hypertension: Plan: Continue lisinopril (4) Cerebral palsy: Plan: Uses wheelchair Continue gabapentin, tizanidine (5) Benign prostatic hyperplasia with urinary obstruction: Plan: Continue finasteride, silodosin DVT Prophylaxis Lovenox SQ Full Code as per discussion with pt Follows with Dixie Holguin PA-C for routine care (6) Acute urinary retention: Admission and Anticipated Discharge Date Admission Date: March 12, 2023 Subjective Pt seen in follow up of shortness of breath poss. COPD vs asthma Pt is a former smoker, hx of cerebral palsy Continues to have a lot of cough, says sputum is clear No chest pain, or abd. pain Renteria placed in ED d/t urinary retention Review of Systems Review of Systems: All systems reviewed & are unremarkable except as noted in Subjective Physical Exam Physical Exam: General: WDWN in NAD, coughing, on suppl. O2 Head: normocephalic, atraumatic Eyes: conjunctiva non-injected, anicteric ENT: normal inspection external ears, nose, mucous membranes moist Neck: supple, trachea midline Lungs: no apparent respiratory distress, able to speak in sentences, +diffuse wheezing, no rhonchi/rales noted CV: RRR, no murmur, no pretibial edema Abd: normal BS, soft, non-tender Ext: no LE edema Neuro: A&O x 3, LE weakness (chronic) no other focal deficits noted, normal affect Skin: warm, dry Results & Data Results & Data Vital Signs (Past 12 Hours) Vital Signs Temp Pulse Pulse Pulse Resp BP BP 03/14/23 08:04 36.5 C 86 18 161/80 H 03/14/23 07:59 92 H 18 03/14/23 07:15 66 03/14/23 04:16 36.3 C L 66 18 107/65 03/13/23 21:59 69 03/13/23 23:23 36.4 C L 70 18 134/72 Pulse Ox O2 Del Method O2 Flow Rate 03/14/23 08:04 90 Room Air 03/14/23 07:59 91 Room Air 03/14/23 07:15 03/14/23 04:16 98 Nasal Cannula 2 03/13/23 21:59 03/13/23 23:23 97 Nasal Cannula 2 Laboratory Results 03/14/23 03/14/23 Range/Units 05:24 05:24 WBC 18.59 H (4.8-10.8) K/ul RBC 4.96 (4.70-6.10) M/uL Hgb 14.3 (14.0-18.0) g/dl Hct 42.6 (42.0-52.0) % MCV 85.9 (80.0-100.0) fL MCH 28.8 (25.0-34.0) pg MCHC 33.6 (32.0-36.0) g/dL RDW Std Deviation 44.0 (36.4-46.3) fL RDW Coeff of Tha 14.1 (11.5-14.5) % Plt Count 337 (130-400) K/uL MPV 10.9 (9.4-12.4) fL Immature Gran % (Auto) 0.5 % Neut % (Auto) 92.7 % Lymph % (Auto) 4.1 % [place] % (Auto) 2.6 % Eos % (Auto) 0.0 % Baso % (Auto) 0.1 % Neut # (Auto) 17.23 H (1.40-6.50) K/uL Lymph # (Auto) 0.76 L (1.2-3.4) K/uL [place] # (Auto) 0.49 (0.11-0.59) K/uL Eos # (Auto) 0.00 (0-0.50) K/uL Baso # (Auto) 0.02 (0-0.2) K/uL Immature Gran # (Auto) 0.09 (0.01-0.20) K/uL Echinocytes 1+ Sodium 142 (136-145) mmol/L Potassium 3.8 (3.5-5.1) mmol/L Chloride 109 H (98-107) mmol/L Carbon Dioxide 24 (21-32) mmol/L Anion Gap 9 (3-11) BUN 14 (6-23) mg/dl Creatinine 0.74 (0.6-1.4) mg/dl Est Cr Clr Drug Dosing 96.5 ml/min Est GFR ( Amer) 121.2 ml/min Est GFR (Non-Af Amer) 104.6 ml/min BUN/Creatinine Ratio 18.9 (10-20) Glucose 175 H (70-99(Fasting)) mg/dl Calcium 9.3 (8.6-10.3) mg/dl Phosphorus 2.6 (2.5-4.9) mg/dl Magnesium 2.2 (1.7-2.4) mg/dl Medications Administered Current Inpatient Medications Acetaminophen (Acetaminophen 325 Mg Tab) 650 mg PO Q4H PRN PRN Reason: Pain or Fever Stop: 04/11/23 18:29 Last Admin: 03/14/23 07:38 Dose: 650 mg Cetirizine HCl (Cetirizine Hcl 10 Mg Tablet) 10 mg PO HS [facility] Stop: 04/11/23 20:59 Last Admin: 03/13/23 20:04 Dose: 10 mg Finasteride (Finasteride 5 Mg Tab) 5 mg PO DAILY [facility] Stop: 04/12/23 08:59 Last Admin: 03/14/23 07:24 Dose: 5 mg Gabapentin (Gabapentin 300 Mg Cap) 300 mg PO TID [facility] Stop: 04/11/23 20:59 Last Admin: 03/14/23 07:24 Dose: 300 mg Guaifenesin (Guaifenesin 600 Mg Tabcr) 600 mg PO Q12 [facility] Stop: 04/12/23 12:59 Last Admin: 03/14/23 07:24 Dose: 600 mg Promethazine HCl 12.5 mg/ (Sodium Chloride) 50.5 mls @ 202 mls/hr IV Q6H PRN PRN Reason: Nausea And Vomiting Stop: 03/14/23 18:29 Azithromycin 500 mg/ Dextrose 255 mls @ 127.5 mls/hr IV Q24H [facility] Stop: 03/20/23 18:44 Last Infusion: 03/13/23 20:07 Dose: Infused Methylprednisolone 40 mg/ (Syringe) 0.64 mls @ 1.5 mls/min IV Q8H [facility] Stop: 04/11/23 18:59 Last Admin: 03/14/23 03:15 Dose: 1.5 mls/min Ipratropium [place] (Ipratropium [place] Neb Soln 0.02% 2.5 Ml Vial) 0.5 mg INH Q4H PRN PRN Reason: wheezing, shortness of breathg Stop: 04/12/23 18:30 Last Admin: 03/14/23 07:56 Dose: 0.5 mg Levalbuterol HCl (Levalbuterol 1.25 Mg/3 Ml Neb) 1.25 mg NEB Q4H PRN PRN Reason: wheezing, shortness of breath Stop: 04/12/23 18:30 Last Admin: 03/14/23 07:56 Dose: 1.25 mg Lisinopril (Lisinopril 20 Mg Tab) 20 mg PO DAILY [facility] Stop: 04/12/23 08:59 Last Admin: 03/14/23 07:24 Dose: 20 mg Mirtazapine (Mirtazapine Tab 15 Mg Tab) 15 mg PO [facility] Stop: 04/11/23 20:59 Last Admin: 03/13/23 20:04 Dose: 15 mg Polyethylene Glycol (Polyethylene (Miralax) 17 Gm Pack) 17 gm PO DAILY PRN PRN Reason: Constipation Stop: 04/11/23 18:29 Tamsulosin HCl (Tamsulosin Hcl 0.4 Mg Cap) 0.4 mg PO HS [facility] Stop: 04/11/23 20:59 Last Admin: 03/13/23 20:04 Dose: 0.4 mg Tizanidine HCl (Tizanidine Hcl 4 Mg Tablet) 1 mg PO Q6H PRN PRN Reason: Muscle Spasm Stop: 04/11/23 18:29
[2023-03-14] MEDS: AZITHROMYCIN 500 MG in DEXTROSE 5% 250 ML IV SCH (18:06)
--- NOTE | 2023-03-14 19:32 | Electrocardiogram Report ---
Test Reason : Blood Pressure : / mmHG Vent. Rate : 085 BPM Atrial Rate : 085 BPM P-R Int : 124 ms QRS Dur : 082 ms QT Int : 366 ms P-R-T Axes : 032 064 047 degrees QTc Int : 435 ms Normal sinus rhythm Normal ECG No previous ECGs available Confirmed by Da Olson ([id number]) on 03/14/2023 7:31:49 PM Referred By: Gilmar Vazquez Confirmed By:Da Olson
[2023-03-14] MEDS: TAMSULOSIN HCL 0.4 MG CAP PO SCH (21:29)
[2023-03-14] MEDS: MIRTAZAPINE TAB 15 MG TAB PO SCH (21:29)
[2023-03-14] MEDS: CETIRIZINE HCL 10 MG TABLET PO SCH (21:30)
[2023-03-15] MEDS: methylPREDNISolone 40 MG in SYRINGE 0 ML IV SCH ×3 (03:24→19:40)
[2023-03-15 08:15] LABS: BUN Creatinine Ratio 25.6 (10-20); Calcium 9.3 mg/dl (8.6-10.3); Creatinine Clr Calc Pharmacy 89.1 ml/min; Est GFR (African American) 116.2 ml/min; Est GFR (Non-African American) 100.3 ml/min; Magnesium 2.3 mg/dl (1.7-2.4); Phosphorus 2.8 mg/dl (2.5-4.9); Potassium 4.8 mmol/L (3.5-5.1)
[2023-03-15] MEDS: GABAPENTIN 300 MG CAP PO SCH ×3 (08:17→19:56)
[2023-03-15] MEDS: lisinopril 20 MG TAB PO SCH (08:18)
[2023-03-15] MEDS: guaiFENesin 600 MG TABCR PO SCH ×2 (08:18→19:57)
[2023-03-15] MEDS: FINASTERIDE 5 MG TAB PO SCH (08:18)
[2023-03-15] MEDS: LEVALBUTEROL 1.25 MG/3 ML NEB NEB PRN (13:33)
[2023-03-15] MEDS: IPRATROPIUM BROMIDE NEB SOLN 0.02% 2.5 ML VIAL INH PRN (13:33)
--- NOTE | 2023-03-15 15:22 | Hospitalist Progress Note ---
Date of Service March 15, 2023 Assessment & Plan (1) Acute respiratory failure with hypoxia: Plan: Patient is a 52-year-old male with PMH cerebral palsy, uses wheelchair, HTN, BPH presented to ER from PCP's office for SOB, ongoing cough and wheezing x months. Failed 3 courses outpatient doxycycline, course of prednisone. In PCP clinic noted to be SOB and hypoxic. In ER afebrile, 88% on RA up to 94% on 4L oxygen, P: 106. No leukocytosis, Lactate and procalcitonin WNL. ABG: pH: 7.43, pCO2:35, pO2: 84, HCO3: 23 Negative Biofire, SARS Cov 2 D-dimer:1060 DDX: bronchitis, COPD/asthma exacerbation, PE. Suspect possible underlying undiagnosed COPD or asthma with symptoms, history of tobacco use CTA chest - negative for PE Continue supplemental oxygen Solumedrol 40mg Q8H Azithromycin nebs prn Consider pulmonology consult if no improvement eosinophils noted on admission, on current cbc zero, cont. to monitor CBC, BMP in am 8/5 - Discussed w/ drill presser - reviewed pt's CT chest scan from admission - concern for poss. chronic aspiration - start unasyn and obtain speech eval (2) Hypokalemia: Plan: K: 3.4 on admission Replace and monitor (3) Hypertension: Plan: Continue lisinopril (4) Cerebral palsy: Plan: Uses wheelchair Continue gabapentin, tizanidine (5) Benign prostatic hyperplasia with urinary obstruction: Plan: Continue finasteride, silodosin DVT Prophylaxis Lovenox SQ Full Code as per discussion with pt Follows with Dixie Holguin PA-C for routine care (6) Acute urinary retention: Admission and Anticipated Discharge Date Admission Date: March 12, 2023 Subjective Pt seen in follow up of shortness of breath poss. COPD vs asthma Pt is a former smoker, hx of cerebral palsy Continues to have a lot of cough, sputum is clear/watery No chest pain, or abd. pain Renteria placed in ED d/t urinary retention Discussed his CT chest w/ drill presser - poss. chronic aspiration - will start unasyn and will consult speech Review of Systems Review of Systems: All systems reviewed & are unremarkable except as noted in Subjective Physical Exam Physical Exam: General: WDWN in NAD, coughing, on suppl. O2 Head: normocephalic, atraumatic Eyes: conjunctiva non-injected, anicteric ENT: normal inspection external ears, nose, mucous membranes moist Neck: supple, trachea midline Lungs: no apparent respiratory distress, able to speak in sentences, +diffuse wheezing, no rhonchi/rales noted CV: RRR, no murmur, no pretibial edema Abd: normal BS, soft, non-tender Ext: no LE edema Neuro: A&O x 3, LE weakness (chronic) no other focal deficits noted, normal affect Skin: warm, dry Results & Data Results & Data Vital Signs (Past 12 Hours) Vital Signs Temp Pulse Pulse Resp BP BP Pulse Ox 03/15/23 15:14 36.7 C 72 18 144/77 H 92 03/15/23 14:22 03/15/23 13:35 81 18 93 03/15/23 11:44 36.5 C 75 18 147/85 H 91 03/15/23 11:22 92 03/15/23 11:22 89 L 03/15/23 10:57 03/15/23 07:52 36.6 C 65 18 158/84 H 92 03/15/23 04:00 36.6 C 80 18 143/80 H 94 Pulse Ox Pulse Ox Pulse Ox O2 Del Method O2 Flow Rate O2 Flow Rate O2 Flow Rate 03/15/23 15:14 Nasal Cannula 2 03/15/23 14:22 94 95 88 L 2 2 03/15/23 13:35 Nasal Cannula 2 03/15/23 11:44 Nasal Cannula 2 03/15/23 11:22 Nasal Cannula 1 03/15/23 11:22 Room Air 03/15/23 10:57 Nasal Cannula 1 03/15/23 07:52 Room Air 03/15/23 04:00 Nasal Cannula 2 O2 Flow Rate 03/15/23 15:14 03/15/23 14:22 2 03/15/23 13:35 03/15/23 11:44 03/15/23 11:22 03/15/23 11:22 03/15/23 10:57 03/15/23 07:52 03/15/23 04:00 Laboratory Results 03/15/23 Range/Units 07:30 Sodium 137 (136-145) mmol/L Potassium 4.8 D (3.5-5.1) mmol/L Chloride 104 (98-107) mmol/L Carbon Dioxide 29 (21-32) mmol/L Anion Gap 4 (3-11) BUN 21 (6-23) mg/dl Creatinine 0.82 (0.6-1.4) mg/dl Est Cr Clr Drug Dosing 89.1 ml/min Est GFR ( Amer) 116.2 ml/min Est GFR (Non-Af Amer) 100.3 ml/min BUN/Creatinine Ratio 25.6 H (10-20) Glucose 173 H (70-99(Fasting)) mg/dl Calcium 9.3 (8.6-10.3) mg/dl Phosphorus 2.8 (2.5-4.9) mg/dl Magnesium 2.3 (1.7-2.4) mg/dl Medications Administered Current Inpatient Medications Acetaminophen (Acetaminophen 325 Mg Tab) 650 mg PO Q4H PRN PRN Reason: Pain or Fever Stop: 04/11/23 18:29 Last Admin: 03/14/23 07:38 Dose: 650 mg Cetirizine HCl (Cetirizine Hcl 10 Mg Tablet) 10 mg PO HS [facility] Stop: 04/11/23 20:59 Last Admin: 03/14/23 21:30 Dose: 10 mg Finasteride (Finasteride 5 Mg Tab) 5 mg PO DAILY [facility] Stop: 04/12/23 08:59 Last Admin: 03/15/23 08:18 Dose: 5 mg Gabapentin (Gabapentin 300 Mg Cap) 300 mg PO TID [facility] Stop: 04/11/23 20:59 Last Admin: 03/15/23 13:44 Dose: 300 mg Guaifenesin (Guaifenesin 600 Mg Tabcr) 600 mg PO Q12 [facility] Stop: 04/12/23 12:59 Last Admin: 03/15/23 08:18 Dose: 600 mg Azithromycin 500 mg/ Dextrose 255 mls @ 127.5 mls/hr IV Q24H [facility] Stop: 03/20/23 18:44 Last Infusion: 03/14/23 20:31 Dose: Infused Methylprednisolone 40 mg/ (Syringe) 0.64 mls @ 1.5 mls/min IV Q8H [facility] Stop: 04/11/23 18:59 Last Admin: 03/15/23 10:50 Dose: 1.5 mls/min Ipratropium [place] (Ipratropium [place] Neb Soln 0.02% 2.5 Ml Vial) 0.5 mg INH Q4H PRN PRN Reason: wheezing, shortness of breathg Stop: 04/12/23 18:30 Last Admin: 03/15/23 13:33 Dose: 0.5 mg Levalbuterol HCl (Levalbuterol 1.25 Mg/3 Ml Neb) 1.25 mg NEB Q4H PRN PRN Reason: wheezing, shortness of breath Stop: 04/12/23 18:30 Last Admin: 03/15/23 13:33 Dose: 1.25 mg Lisinopril (Lisinopril 20 Mg Tab) 20 mg PO DAILY [facility] Stop: 04/12/23 08:59 Last Admin: 03/15/23 08:18 Dose: 20 mg Mirtazapine (Mirtazapine Tab 15 Mg Tab) 15 mg PO HS [facility] Stop: 04/11/23 20:59 Last Admin: 03/14/23 21:29 Dose: 15 mg Polyethylene Glycol (Polyethylene (Miralax) 17 Gm Pack) 17 gm PO DAILY PRN PRN Reason: Constipation Stop: 04/11/23 18:29 Tamsulosin HCl (Tamsulosin Hcl 0.4 Mg Cap) 0.4 mg PO HS [facility] Stop: 04/11/23 20:59 Last Admin: 03/14/23 21:29 Dose: 0.4 mg Tizanidine HCl (Tizanidine Hcl 4 Mg Tablet) 1 mg PO Q6H PRN PRN Reason: Muscle Spasm Stop: 04/11/23 18:29
[2023-03-15] MEDS: AMPICILLIN/SULBACTAM SOD 3,000 MG in 0.9 % SODIUM CHLORIDE 100 ML IV SCH (18:26)
[2023-03-15] MEDS: AZITHROMYCIN 500 MG in DEXTROSE 5% 250 ML IV SCH (19:40)
[2023-03-15] MEDS: MIRTAZAPINE TAB 15 MG TAB PO SCH (19:56)
[2023-03-15] MEDS: TAMSULOSIN HCL 0.4 MG CAP PO SCH (19:57)
[2023-03-15] MEDS: CETIRIZINE HCL 10 MG TABLET PO SCH (19:57)
[2023-03-16] MEDS: AMPICILLIN/SULBACTAM SOD 3,000 MG in 0.9 % SODIUM CHLORIDE 100 ML IV SCH ×5 (00:56→23:09)
[2023-03-16] MEDS: methylPREDNISolone 40 MG in SYRINGE 0 ML IV SCH ×3 (03:13→20:16)
[2023-03-16 06:37] LABS: Hematocrit (blood only) 43.1 % (42.0-52.0); Hemoglobin 14.3 g/dl (14.0-18.0); Mean Corpuscular Hemoglobin 28.8 pg (25.0-34.0); Mean Corpuscular Hgb Conc 33.2 g/dL (32.0-36.0); Mean Corpuscular Volume 86.7 fL (80.0-100.0); Mean Platelet Volume 10.6 fL (9.4-12.4); Platelet Count 303 K/uL (130-400); RDW Coefficient of Variation 13.8 % (11.5-14.5); RDW Standard Deviation 43.9 fL (36.4-46.3); Red Blood Count 4.97 M/uL (4.70-6.10); White Blood Count 12.85 K/ul (4.8-10.8)
[2023-03-16 06:53] LABS: BUN Creatinine Ratio 30.6 (10-20); Calcium 8.6 mg/dl (8.6-10.3); Creatinine Clr Calc Pharmacy 101.7 ml/min; Est GFR (African American) 122.6 ml/min; Est GFR (Non-African American) 105.8 ml/min; Magnesium 2.3 mg/dl (1.7-2.4); Phosphorus 2.3 mg/dl (2.5-4.9); Potassium 4.2 mmol/L (3.5-5.1)
--- NOTE | 2023-03-16 07:14 | Hospitalist Progress Note ---
Date of Service March 16, 2023 Assessment & Plan (1) Acute respiratory failure with hypoxia: Plan: Patient is a 52-year-old male with PMH cerebral palsy, uses wheelchair, HTN, BPH presented to ER from PCP's office for SOB, ongoing cough and wheezing x months. Failed 3 courses outpatient doxycycline, course of prednisone. In PCP clinic noted to be SOB and hypoxic. In ER afebrile, 88% on RA up to 94% on 4L oxygen, P: 106. No leukocytosis, Lactate and procalcitonin WNL. ABG: pH: 7.43, pCO2:35, pO2: 84, HCO3: 23 Negative Biofire, SARS Cov 2 D-dimer:1060 DDX: bronchitis, COPD/asthma exacerbation, PE. Suspect possible underlying undiagnosed COPD or asthma with symptoms, history of tobacco use CTA chest - negative for PE Continue supplemental oxygen Solumedrol 40mg Q8H Azithromycin nebs prn Consider pulmonology consult if no improvement eosinophils noted on admission, on current cbc zero, cont. to monitor CBC, BMP in am 03/15 - Discussed w/ environmental health and safety manager - reviewed pt's CT chest scan from admission - concern for poss. chronic aspiration - start unasyn and obtain speech eval 03/16 pt reports feeling somewhat better today. Also says he often eats too fast and then coughs. WBC down from yesterday. Cont. unasyn (2) Hypokalemia: Plan: K: 3.4 on admission Replace and monitor (3) Hypertension: Plan: Continue lisinopril (4) Cerebral palsy: Plan: Uses wheelchair Continue gabapentin, tizanidine (5) Benign prostatic hyperplasia with urinary obstruction: Plan: Continue finasteride, silodosin DVT Prophylaxis Lovenox SQ Full Code as per discussion with pt Follows with Dixie Holguin PA-C for routine care (6) Acute urinary retention: Admission and Anticipated Discharge Date Admission Date: March 12, 2023 Subjective Pt seen in follow up of shortness of breath poss. COPD vs asthma Pt is a former smoker, hx of cerebral palsy Continues to have a lot of cough, sputum is clear/watery No chest pain, or abd. pain Renteria placed in ED d/t urinary retention Discussed his CT chest w/ environmental health and safety manager yesterday - poss. chronic aspiration - started unasyn and had speech consulted WBC now down from yesterday Pt tells me he feels somewhat better today and that he often eats too fast and then coughs Review of Systems Review of Systems: All systems reviewed & are unremarkable except as noted in Subjective Physical Exam Physical Exam: General: WDWN in NAD, coughing, on suppl. O2 Head: normocephalic, atraumatic Eyes: conjunctiva non-injected, anicteric ENT: normal inspection external ears, nose, mucous membranes moist Neck: supple, trachea midline Lungs: no apparent respiratory distress, able to speak in sentences, +diffuse wheezing, + rhonchi CV: RRR, no murmur, no pretibial edema Abd: normal BS, soft, non-tender Ext: no LE edema Neuro: A&O x 3, LE weakness (chronic) no other focal deficits noted, normal affect Skin: warm, dry Results & Data Results & Data Vital Signs (Past 12 Hours) Vital Signs Temp Pulse Pulse Resp BP Pulse Ox O2 Del Method 03/16/23 04:07 36.6 C 69 18 125/79 94 Nasal Cannula 03/15/23 22:06 69 03/15/23 23:57 36.7 C 71 18 129/77 94 Nasal Cannula 03/15/23 20:11 Nasal Cannula 03/15/23 19:49 36.8 C 77 18 142/76 H 94 Nasal Cannula O2 Flow Rate 03/16/23 04:07 2 03/15/23 22:06 03/15/23 23:57 2 03/15/23 20:11 1 03/15/23 19:49 2 Laboratory Results 03/16/23 03/16/23 03/15/23 Range/Units 05:49 05:49 07:30 WBC 12.85 H (4.8-10.8) K/ul RBC 4.97 (4.70-6.10) M/uL Hgb 14.3 (14.0-18.0) g/dl Hct 43.1 (42.0-52.0) % MCV 86.7 (80.0-100.0) fL MCH 28.8 (25.0-34.0) pg MCHC 33.2 (32.0-36.0) g/dL RDW Std Deviation 43.9 (36.4-46.3) fL RDW Coeff of Tha 13.8 (11.5-14.5) % Plt Count 303 (130-400) K/uL MPV 10.6 (9.4-12.4) fL Sodium 135 L 137 (136-145) mmol/L Potassium 4.2 4.8 D (3.5-5.1) mmol/L Chloride 104 104 (98-107) mmol/L Carbon Dioxide 25 29 (21-32) mmol/L Anion Gap 6 4 (3-11) BUN 22 21 (6-23) mg/dl Creatinine 0.72 0.82 (0.6-1.4) mg/dl Est Cr Clr Drug Dosing 101.7 89.1 ml/min Est GFR ( Amer) 122.6 116.2 ml/min Est GFR (Non-Af Amer) 105.8 100.3 ml/min BUN/Creatinine Ratio 30.6 H 25.6 H (10-20) Glucose 220 H 173 H (70-99(Fasting)) mg/dl Calcium 8.6 9.3 (8.6-10.3) mg/dl Phosphorus 2.3 L 2.8 (2.5-4.9) mg/dl Magnesium 2.3 2.3 (1.7-2.4) mg/dl Medications Administered Current Inpatient Medications Acetaminophen (Acetaminophen 325 Mg Tab) 650 mg PO Q4H PRN PRN Reason: Pain or Fever Stop: 04/11/23 18:29 Last Admin: 03/14/23 07:38 Dose: 650 mg Cetirizine HCl (Cetirizine Hcl 10 Mg Tablet) 10 mg PO HS [facility] Stop: 04/11/23 20:59 Last Admin: 03/15/23 19:57 Dose: 10 mg Finasteride (Finasteride 5 Mg Tab) 5 mg PO DAILY [facility] Stop: 04/12/23 08:59 Last Admin: 03/15/23 08:18 Dose: 5 mg Gabapentin (Gabapentin 300 Mg Cap) 300 mg PO TID [facility] Stop: 04/11/23 20:59 Last Admin: 03/15/23 19:56 Dose: 300 mg Guaifenesin (Guaifenesin 600 Mg Tabcr) 600 mg PO Q12 [facility] Stop: 04/12/23 12:59 Last Admin: 03/15/23 19:57 Dose: 600 mg Azithromycin 500 mg/ Dextrose 255 mls @ 127.5 mls/hr IV Q24H [facility] Stop: 03/20/23 18:44 Last Infusion: 03/15/23 21:50 Dose: Infused Methylprednisolone 40 mg/ (Syringe) 0.64 mls @ 1.5 mls/min IV Q8H [facility] Stop: 04/11/23 18:59 Last Admin: 03/16/23 03:13 Dose: 1.5 mls/min Ampicillin Sodium/Sulbactam Sodium 3,000 mg/ Sodium Chloride 108 mls @ 200 mls/hr IV Q6H [facility]; Protocol Stop: 03/22/23 17:29 Last Admin: 03/16/23 06:13 Dose: 200 mls/hr Ipratropium [place] (Ipratropium [place] Neb Soln 0.02% 2.5 Ml Vial) 0.5 mg INH Q4H PRN PRN Reason: wheezing, shortness of breathg Stop: 04/12/23 18:30 Last Admin: 03/15/23 13:33 Dose: 0.5 mg Levalbuterol HCl (Levalbuterol 1.25 Mg/3 Ml Neb) 1.25 mg NEB Q4H PRN PRN Reason: wheezing, shortness of breath Stop: 04/12/23 18:30 Last Admin: 03/15/23 13:33 Dose: 1.25 mg Lisinopril (Lisinopril 20 Mg Tab) 20 mg PO DAILY [facility] Stop: 04/12/23 08:59 Last Admin: 03/15/23 08:18 Dose: 20 mg Mirtazapine (Mirtazapine Tab 15 Mg Tab) 15 mg PO HS [facility] Stop: 04/11/23 20:59 Last Admin: 03/15/23 19:56 Dose: 15 mg Polyethylene Glycol (Polyethylene (Miralax) 17 Gm Pack) 17 gm PO DAILY PRN PRN Reason: Constipation Stop: 04/11/23 18:29 Tamsulosin HCl (Tamsulosin Hcl 0.4 Mg Cap) 0.4 mg PO HS [facility] Stop: 04/11/23 20:59 Last Admin: 03/15/23 19:57 Dose: 0.4 mg Tizanidine HCl (Tizanidine Hcl 4 Mg Tablet) 1 mg PO Q6H PRN PRN Reason: Muscle Spasm Stop: 04/11/23 18:29
[2023-03-16] MEDS: GABAPENTIN 300 MG CAP PO SCH ×3 (09:15→20:17)
[2023-03-16] MEDS: FINASTERIDE 5 MG TAB PO SCH (09:15)
[2023-03-16] MEDS: lisinopril 20 MG TAB PO SCH (09:15)
[2023-03-16] MEDS: guaiFENesin 600 MG TABCR PO SCH ×2 (09:15→20:17)
[2023-03-16] MEDS: AZITHROMYCIN 500 MG in DEXTROSE 5% 250 ML IV SCH (18:14)
[2023-03-16] MEDS: TAMSULOSIN HCL 0.4 MG CAP PO SCH (20:17)
[2023-03-16] MEDS: MIRTAZAPINE TAB 15 MG TAB PO SCH (20:17)
[2023-03-16] MEDS: CETIRIZINE HCL 10 MG TABLET PO SCH (20:17)
[2023-03-17] MEDS: methylPREDNISolone 40 MG in SYRINGE 0 ML IV SCH ×3 (02:49→17:54)
[2023-03-17] MEDS: AMPICILLIN/SULBACTAM SOD 3,000 MG in 0.9 % SODIUM CHLORIDE 100 ML IV SCH ×3 (05:32→17:17)
[2023-03-17 07:01] LABS: Hematocrit (blood only) 42.1 % (42.0-52.0); Hemoglobin 14.2 g/dl (14.0-18.0); Mean Corpuscular Hemoglobin 28.7 pg (25.0-34.0); Mean Corpuscular Hgb Conc 33.7 g/dL (32.0-36.0); Mean Corpuscular Volume 85.1 fL (80.0-100.0); Mean Platelet Volume 10.9 fL (9.4-12.4); Platelet Count 293 K/uL (130-400); RDW Coefficient of Variation 13.3 % (11.5-14.5); RDW Standard Deviation 41.3 fL (36.4-46.3); Red Blood Count 4.95 M/uL (4.70-6.10); White Blood Count 11.64 K/ul (4.8-10.8)
[2023-03-17 07:31] LABS: BUN Creatinine Ratio 34.9 (10-20); Calcium 8.3 mg/dl (8.6-10.3); Creatinine Clr Calc Pharmacy 114.1 ml/min; Est GFR (African American) 129.5 ml/min; Est GFR (Non-African American) 111.7 ml/min; Magnesium 2.3 mg/dl (1.7-2.4); Potassium 4.1 mmol/L (3.5-5.1)
[2023-03-17] MEDS: FINASTERIDE 5 MG TAB PO SCH (07:47)
[2023-03-17] MEDS: GABAPENTIN 300 MG CAP PO SCH ×3 (07:47→20:47)
[2023-03-17] MEDS: lisinopril 20 MG TAB PO SCH (07:47)
[2023-03-17] MEDS: guaiFENesin 600 MG TABCR PO SCH ×2 (07:47→20:48)
--- NOTE | 2023-03-17 08:33 | Hospitalist Progress Note ---
Date of Service March 17, 2023 Assessment & Plan (1) Acute respiratory failure with hypoxia: Plan: Patient is a 52-year-old male with PMH cerebral palsy, uses wheelchair, HTN, BPH presented to ER from PCP's office for SOB, ongoing cough and wheezing x months. Failed 3 courses outpatient doxycycline, course of prednisone. In PCP clinic noted to be SOB and hypoxic. In ER afebrile, 88% on RA up to 94% on 4L oxygen, P: 106. No leukocytosis, Lactate and procalcitonin WNL. ABG: pH: 7.43, pCO2:35, pO2: 84, HCO3: 23 Negative Biofire, SARS Cov 2 D-dimer:1060 DDX: bronchitis, COPD/asthma exacerbation, PE. Suspect possible underlying undiagnosed COPD or asthma with symptoms, history of tobacco use CTA chest - negative for PE Continue supplemental oxygen Solumedrol 40mg Q8H Azithromycin nebs prn Consider pulmonology consult if no improvement eosinophils noted on admission, on current cbc zero, cont. to monitor CBC, BMP in am 03/15 - Discussed w/ consumer loan processor - reviewed pt's CT chest scan from admission - concern for poss. chronic aspiration - start unasyn and obtain speech eval 03/16 - pt reports feeling somewhat better today. Also says he often eats too fast and then coughs. WBC down from yesterday. Cont. unasyn 03/17 - still w/ significant cough and wheezing. on suppl. O2. Overall feeling somewhat better. (2) Hypokalemia: Plan: K: 3.4 on admission Replace and monitor (3) Hypertension: Plan: Continue lisinopril (4) Cerebral palsy: Plan: Uses wheelchair Continue gabapentin, tizanidine (5) Benign prostatic hyperplasia with urinary obstruction: Plan: Continue finasteride, silodosin DVT Prophylaxis Lovenox SQ Full Code as per discussion with pt Follows with Dixie Holguin PA-C for routine care (6) Acute urinary retention: Admission and Anticipated Discharge Date Admission Date: March 12, 2023 Subjective Pt seen in follow up of shortness of breath poss. COPD vs asthma Pt is a former smoker, hx of cerebral palsy Continues to have a lot of cough, sputum is clear/watery No chest pain, or abd. pain Falk placed in ED d/t urinary retention - now falk removed Discussed his CT chest w/ consumer loan processor - jami. chronic aspiration - started unasyn and had speech consulted WBC now down Pt tells me he feels somewhat better today and that he often eats too fast and then coughs. Continues to have significant cough and wheezing. Review of Systems Review of Systems: All systems reviewed & are unremarkable except as noted in Subjective Physical Exam Physical Exam: General: WDWN in NAD, coughing, on suppl. O2 Head: normocephalic, atraumatic Eyes: conjunctiva non-injected, anicteric ENT: normal inspection external ears, nose, mucous membranes moist Neck: supple, trachea midline Lungs: no apparent respiratory distress, able to speak in sentences, +diffuse wheezing, + rhonchi CV: RRR, no murmur, no pretibial edema Abd: normal BS, soft, non-tender Ext: no LE edema Neuro: A&O x 3, LE weakness (chronic) no other focal deficits noted, normal affect Skin: warm, dry Results & Data Results & Data Vital Signs (Past 12 Hours) Vital Signs Temp Pulse Pulse Pulse Resp BP BP 03/17/23 07:41 36.5 C 57 L 18 167/89 H 03/17/23 07:32 67 03/17/23 03:20 36.6 C 72 18 145/86 H 03/17/23 00:00 36.9 C 57 L 18 136/80 03/16/23 22:53 53 L Pulse Ox O2 Del Method O2 Flow Rate 03/17/23 07:41 91 Nasal Cannula 2 03/17/23 07:32 03/17/23 03:20 93 Nasal Cannula 2 03/17/23 00:00 93 Room Air 03/16/23 22:53 Laboratory Results 03/17/23 03/17/23 Range/Units 05:47 05:47 WBC 11.64 H (4.8-10.8) K/ul RBC 4.95 (4.70-6.10) M/uL Hgb 14.2 (14.0-18.0) g/dl Hct 42.1 (42.0-52.0) % MCV 85.1 (80.0-100.0) fL MCH 28.7 (25.0-34.0) pg MCHC 33.7 (32.0-36.0) g/dL RDW Std Deviation 41.3 (36.4-46.3) fL RDW Coeff of Tha 13.3 (11.5-14.5) % Plt Count 293 (130-400) K/uL MPV 10.9 (9.4-12.4) fL Sodium 136 (136-145) mmol/L Potassium 4.1 (3.5-5.1) mmol/L Chloride 105 (98-107) mmol/L Carbon Dioxide 25 (21-32) mmol/L Anion Gap 6 (3-11) BUN 22 (6-23) mg/dl Creatinine 0.63 (0.6-1.4) mg/dl Est Cr Clr Drug Dosing 114.1 ml/min Est GFR ( Amer) 129.5 ml/min Est GFR (Non-Af Amer) 111.7 ml/min BUN/Creatinine Ratio 34.9 H (10-20) Glucose 200 H (70-99(Fasting)) mg/dl Calcium 8.3 L (8.6-10.3) mg/dl Magnesium 2.3 (1.7-2.4) mg/dl Medications Administered Current Inpatient Medications Acetaminophen (Acetaminophen 325 Mg Tab) 650 mg PO Q4H PRN PRN Reason: Pain or Fever Stop: 04/11/23 18:29 Last Admin: 03/14/23 07:38 Dose: 650 mg Cetirizine HCl (Cetirizine Hcl 10 Mg Tablet) 10 mg PO HS CATHY Stop: 04/11/23 20:59 Last Admin: 03/16/23 20:17 Dose: 10 mg Finasteride (Finasteride 5 Mg Tab) 5 mg PO DAILY CATHY Stop: 04/12/23 08:59 Last Admin: 03/17/23 07:47 Dose: 5 mg Gabapentin (Gabapentin 300 Mg Cap) 300 mg PO TID CATHY Stop: 04/11/23 20:59 Last Admin: 03/17/23 07:47 Dose: 300 mg Guaifenesin (Guaifenesin 600 Mg Tabcr) 600 mg PO Q12 [facility] Stop: 04/12/23 12:59 Last Admin: 03/17/23 07:47 Dose: 600 mg Azithromycin 500 mg/ Dextrose 255 mls @ 127.5 mls/hr IV Q24H [facility] Stop: 03/20/23 18:44 Last Infusion: 03/16/23 20:26 Dose: Infused Methylprednisolone 40 mg/ (Syringe) 0.64 mls @ 1.5 mls/min IV Q8H [facility] Stop: 04/11/23 18:59 Last Admin: 03/17/23 02:49 Dose: 1.5 mls/min Ampicillin Sodium/Sulbactam Sodium 3,000 mg/ Sodium Chloride 108 mls @ 200 mls/hr IV Q6H CATH[facility]; Protocol Stop: 03/22/23 17:29 Last Infusion: 03/17/23 06:09 Dose: Infused Ipratropium [place] (Ipratropium [place] Neb Soln 0.02% 2.5 Ml Vial) 0.5 mg INH Q4H PRN PRN Reason: wheezing, shortness of breathg Stop: 04/12/23 18:30 Last Admin: 03/15/23 13:33 Dose: 0.5 mg Levalbuterol HCl (Levalbuterol 1.25 Mg/3 Ml Neb) 1.25 mg NEB Q4H PRN PRN Reason: wheezing, shortness of breath Stop: 04/12/23 18:30 Last Admin: 03/15/23 13:33 Dose: 1.25 mg Lisinopril (Lisinopril 20 Mg Tab) 20 mg PO DAILY CATHY Stop: 04/12/23 08:59 Last Admin: 03/17/23 07:47 Dose: 20 mg Mirtazapine (Mirtazapine Tab 15 Mg Tab) 15 mg PO HS CATHY Stop: 04/11/23 20:59 Last Admin: 03/16/23 20:17 Dose: 15 mg Polyethylene Glycol (Polyethylene (Miralax) 17 Gm Pack) 17 gm PO DAILY PRN PRN Reason: Constipation Stop: 04/11/23 18:29 Tamsulosin HCl (Tamsulosin Hcl 0.4 Mg Cap) 0.4 mg PO HS CATHY Stop: 04/11/23 20:59 Last Admin: 03/16/23 20:17 Dose: 0.4 mg Tizanidine HCl (Tizanidine Hcl 4 Mg Tablet) 1 mg PO Q6H PRN PRN Reason: Muscle Spasm Stop: 04/11/23 18:29
[2023-03-17] MEDS: AZITHROMYCIN 500 MG in DEXTROSE 5% 250 ML IV SCH (17:54)
[2023-03-17] MEDS: CETIRIZINE HCL 10 MG TABLET PO SCH (20:47)
[2023-03-17] MEDS: MIRTAZAPINE TAB 15 MG TAB PO SCH (20:48)
[2023-03-17] MEDS: TAMSULOSIN HCL 0.4 MG CAP PO SCH (20:48)
[2023-03-18] MEDS: AMPICILLIN/SULBACTAM SOD 3,000 MG in 0.9 % SODIUM CHLORIDE 100 ML IV SCH ×5 (00:24→23:24)
[2023-03-18] MEDS: methylPREDNISolone 40 MG in SYRINGE 0 ML IV SCH ×2 (03:59→08:34)
[2023-03-18 06:32] LABS: Hematocrit (blood only) 41.3 % (42.0-52.0); Mean Corpuscular Hemoglobin 28.9 pg (25.0-34.0); Mean Corpuscular Hgb Conc 33.9 g/dL (32.0-36.0); Mean Corpuscular Volume 85.2 fL (80.0-100.0); Mean Platelet Volume 10.4 fL (9.4-12.4); Platelet Count 288 K/uL (130-400); RDW Coefficient of Variation 13.4 % (11.5-14.5); RDW Standard Deviation 41.8 fL (36.4-46.3); Red Blood Count 4.85 M/uL (4.70-6.10)
[2023-03-18 06:48] LABS: BUN Creatinine Ratio 30.3 (10-20); Calcium 8.1 mg/dl (8.6-10.3); Creatinine Clr Calc Pharmacy 113.8 ml/min; Est GFR (Non-African American) 109.6 ml/min; Magnesium 2.3 mg/dl (1.7-2.4)
--- NOTE | 2023-03-18 07:44 | Hospitalist Progress Note ---
Date of Service March 18, 2023 Assessment & Plan (1) Acute respiratory failure with hypoxia: Plan: Patient is a 52-year-old male with PMH cerebral palsy, uses wheelchair, HTN, BPH presented to ER from PCP's office for SOB, ongoing cough and wheezing x months. Failed 3 courses outpatient doxycycline, course of prednisone. In PCP clinic noted to be SOB and hypoxic. In ER afebrile, 88% on RA up to 94% on 4L oxygen, P: 106. No leukocytosis, Lactate and procalcitonin WNL. ABG: pH: 7.43, pCO2:35, pO2: 84, HCO3: 23 Negative Biofire, SARS Cov 2 D-dimer:1060 DDX: bronchitis, COPD/asthma exacerbation, PE. Suspect possible underlying undiagnosed COPD or asthma with symptoms, history of tobacco use CTA chest - negative for PE Continue supplemental oxygen Solumedrol 40mg Q8H Azithromycin nebs prn Consider pulmonology consult if no improvement eosinophils noted on admission, on current cbc zero, cont. to monitor CBC, BMP in am 03/15 - Discussed w/ intelligence research specialist - reviewed pt's CT chest scan from admission - concern for poss. chronic aspiration - start unasyn and obtain speech eval 03/16 - pt reports feeling somewhat better today. Also says he often eats too fast and then coughs. WBC down from yesterday. Cont. unasyn 03/17 - still w/ significant cough and wheezing. on suppl. O2. Overall feeling somewhat better. 03/18 - breathing and cough improved. stop azithro and decrease solumedrol to daily. cont. unasyn. (2) Hypokalemia: Plan: K: 3.4 on admission Replace and monitor (3) Hypertension: Plan: Continue lisinopril (4) Cerebral palsy: Plan: Uses wheelchair Continue gabapentin, tizanidine (5) Benign prostatic hyperplasia with urinary obstruction: Plan: Continue finasteride, silodosin - in ED required Falk placement for retention, Falk now removed and pt required straight cath - may need urology follow up DVT Prophylaxis Lovenox SQ Full Code as per discussion with pt Follows with Dixie Holguin PA-C for routine care (6) Acute urinary retention: Admission and Anticipated Discharge Date Admission Date: March 12, 2023 Subjective Pt seen in follow up of shortness of breath , hypoxia Pt is a former smoker, hx of cerebral palsy cough is improved No chest pain, or abd. pain Falk placed in ED d/t urinary retention - now falk removed Discussed his CT chest w/ intelligence research specialist - poss. chronic aspiration - started unasyn and had speech consulted WBC now down Pt tells me he feels somewhat better today and that he often eats too fast and then coughs. Review of Systems Review of Systems: All systems reviewed & are unremarkable except as noted in Subjective Physical Exam Physical Exam: General: WDWN in NAD, coughing, on suppl. O2 Head: normocephalic, atraumatic Eyes: conjunctiva non-injected, anicteric ENT: normal inspection external ears, nose, mucous membranes moist Neck: supple, trachea midline Lungs: no apparent respiratory distress, able to speak in sentences, +diffuse wheezing, + rhonchi , but improved air movement CV: RRR, no murmur, no pretibial edema Abd: normal BS, soft, non-tender Ext: no LE edema Neuro: A&O x 3, LE weakness (chronic) no other focal deficits noted, normal affect Skin: warm, dry Results & Data Results & Data Vital Signs (Past 12 Hours) Vital Signs Temp Pulse Pulse Resp BP BP Pulse Ox 03/18/23 07:10 67 03/17/23 22:00 55 L 03/18/23 03:13 37.1 C 61 18 133/70 91 03/17/23 23:37 36.8 C 68 18 145/79 H 95 03/17/23 20:07 36.8 C 83 18 140/68 90 O2 Del Method O2 Flow Rate 03/18/23 07:10 03/17/23 22:00 03/18/23 03:13 Nasal Cannula 2 03/17/23 23:37 Nasal Cannula 2 03/17/23 20:07 Nasal Cannula 2 Laboratory Results 03/18/23 03/18/23 Range/Units 05:49 05:49 WBC 10.40 (4.8-10.8) K/ul RBC 4.85 (4.70-6.10) M/uL Hgb 14.0 (14.0-18.0) g/dl Hct 41.3 L (42.0-52.0) % MCV 85.2 (80.0-100.0) fL MCH 28.9 (25.0-34.0) pg MCHC 33.9 (32.0-36.0) g/dL RDW Std Deviation 41.8 (36.4-46.3) fL RDW Coeff of Tha 13.4 (11.5-14.5) % Plt Count 288 (130-400) K/uL MPV 10.4 (9.4-12.4) fL Sodium 138 (136-145) mmol/L Potassium 4.0 (3.5-5.1) mmol/L Chloride 107 (98-107) mmol/L Carbon Dioxide 24 (21-32) mmol/L Anion Gap 7 (3-11) BUN 20 (6-23) mg/dl Creatinine 0.66 (0.6-1.4) mg/dl Est Cr Clr Drug Dosing 113.8 ml/min Est GFR ( Amer) 127.0 ml/min Est GFR (Non-Af Amer) 109.6 ml/min BUN/Creatinine Ratio 30.3 H (10-20) Glucose 246 H (70-99(Fasting)) mg/dl Calcium 8.1 L (8.6-10.3) mg/dl Magnesium 2.3 (1.7-2.4) mg/dl Medications Administered Current Inpatient Medications Acetaminophen (Acetaminophen 325 Mg Tab) 650 mg PO Q4H PRN PRN Reason: Pain or Fever Stop: 04/11/23 18:29 Last Admin: 03/14/23 07:38 Dose: 650 mg Cetirizine HCl (Cetirizine Hcl 10 Mg Tablet) 10 mg PO HS CATHY Stop: 04/11/23 20:59 Last Admin: 03/17/23 20:47 Dose: 10 mg Finasteride (Finasteride 5 Mg Tab) 5 mg PO DAILY CATHY Stop: 04/12/23 08:59 Last Admin: 03/17/23 07:47 Dose: 5 mg Gabapentin (Gabapentin 300 Mg Cap) 300 mg PO TID CATHY Stop: 04/11/23 20:59 Last Admin: 03/17/23 20:47 Dose: 300 mg Guaifenesin (Guaifenesin 600 Mg Tabcr) 600 mg PO Q12 CATHY Stop: 04/12/23 12:59 Last Admin: 03/17/23 20:48 Dose: 600 mg Azithromycin 500 mg/ Dextrose 255 mls @ 127.5 mls/hr IV Q24H [facility]ATHY Stop: 03/20/23 18:44 Last Infusion: 03/18/23 00:00 Dose: Infused Methylprednisolone 40 mg/ (Syringe) 0.64 mls @ 1.5 mls/min IV Q8H [facility] Stop: 04/11/23 18:59 Last Admin: 03/18/23 03:59 Dose: 1.5 mls/min Ampicillin Sodium/Sulbactam Sodium 3,000 mg/ Sodium Chloride 108 mls @ 200 mls/hr IV Q6H [facility]; Protocol Stop: 03/22/23 17:29 Last Infusion: 03/18/23 05:44 Dose: Infused Ipratropium [place] (Ipratropium [place] Neb Soln 0.02% 2.5 Ml Vial) 0.5 mg INH Q4H PRN PRN Reason: wheezing, shortness of breathg Stop: 04/12/23 18:30 Last Admin: 03/15/23 13:33 Dose: 0.5 mg Levalbuterol HCl (Levalbuterol 1.25 Mg/3 Ml Neb) 1.25 mg NEB Q4H PRN PRN Reason: wheezing, shortness of breath Stop: 04/12/23 18:30 Last Admin: 03/15/23 13:33 Dose: 1.25 mg Lisinopril (Lisinopril 20 Mg Tab) 20 mg PO DAILY [facility] Stop: 04/12/23 08:59 Last Admin: 03/17/23 07:47 Dose: 20 mg Mirtazapine (Mirtazapine Tab 15 Mg Tab) 15 mg PO [facility] Stop: 04/11/23 20:59 Last Admin: 03/17/23 20:48 Dose: 15 mg Polyethylene Glycol (Polyethylene (Miralax) 17 Gm Pack) 17 gm PO DAILY PRN PRN Reason: Constipation Stop: 04/11/23 18:29 Tamsulosin HCl (Tamsulosin Hcl 0.4 Mg Cap) 0.4 mg PO [facility] Stop: 04/11/23 20:59 Last Admin: 03/17/23 20:48 Dose: 0.4 mg Tizanidine HCl (Tizanidine Hcl 4 Mg Tablet) 1 mg PO Q6H PRN PRN Reason: Muscle Spasm Stop: 04/11/23 18:29
[2023-03-18] MEDS: GABAPENTIN 300 MG CAP PO SCH ×3 (08:33→21:40)
[2023-03-18] MEDS: FINASTERIDE 5 MG TAB PO SCH (08:33)
[2023-03-18] MEDS: guaiFENesin 600 MG TABCR PO SCH ×2 (08:34→21:41)
[2023-03-18] MEDS: lisinopril 20 MG TAB PO SCH (08:34)
[2023-03-18] MEDS: TAMSULOSIN HCL 0.4 MG CAP PO SCH (21:40)
[2023-03-18] MEDS: CETIRIZINE HCL 10 MG TABLET PO SCH (21:40)
[2023-03-18] MEDS: MIRTAZAPINE TAB 15 MG TAB PO SCH (21:40)
[2023-03-19] MEDS: AMPICILLIN/SULBACTAM SOD 3,000 MG in 0.9 % SODIUM CHLORIDE 100 ML IV SCH ×3 (05:16→17:38)
[2023-03-19 06:54] LABS: Hematocrit (blood only) 41.4 % (42.0-52.0); Hemoglobin 14.1 g/dl (14.0-18.0); Mean Corpuscular Hgb Conc 34.1 g/dL (32.0-36.0); Mean Corpuscular Volume 85.2 fL (80.0-100.0); Mean Platelet Volume 10.2 fL (9.4-12.4); Platelet Count 264 K/uL (130-400); RDW Coefficient of Variation 13.3 % (11.5-14.5); RDW Standard Deviation 41.2 fL (36.4-46.3); Red Blood Count 4.86 M/uL (4.70-6.10); White Blood Count 10.84 K/ul (4.8-10.8)
[2023-03-19 07:18] LABS: BUN Creatinine Ratio 24.7 (10-20); Calcium 7.9 mg/dl (8.6-10.3); Creatinine Clr Calc Pharmacy 104.4 ml/min; Est GFR (African American) 121.9 ml/min; Est GFR (Non-African American) 105.2 ml/min; Magnesium 2.2 mg/dl (1.7-2.4); Phosphorus 2.4 mg/dl (2.5-4.9); Potassium 3.5 mmol/L (3.5-5.1)
[2023-03-19] MEDS: guaiFENesin 600 MG TABCR PO SCH ×2 (07:31→21:37)
[2023-03-19] MEDS: methylPREDNISolone 40 MG in SYRINGE 0 ML IV SCH (07:31)
[2023-03-19] MEDS: lisinopril 20 MG TAB PO SCH (07:31)
[2023-03-19] MEDS: GABAPENTIN 300 MG CAP PO SCH ×3 (07:31→21:38)
[2023-03-19] MEDS: FINASTERIDE 5 MG TAB PO SCH (07:31)
--- NOTE | 2023-03-19 20:51 | Hospitalist Progress Note ---
Date of Service March 19, 2023 Assessment & Plan (1) Acute respiratory failure with hypoxia: Plan: Per previous attending notes with addendum: Patient is a 52-year-old male with PMH cerebral palsy, uses wheelchair, HTN, BPH presented to ER from PCP's office for SOB, ongoing cough and wheezing x months. Failed 3 courses outpatient doxycycline, course of prednisone. In PCP clinic noted to be SOB and hypoxic. In ER afebrile, 88% on RA up to 94% on 4L oxygen, P: 106. No leukocytosis, Lactate and procalcitonin WNL. ABG: pH: 7.43, pCO2:35, pO2: 84, HCO3: 23 Negative Biofire, SARS Cov 2 D-dimer:1060 DDX: bronchitis, COPD/asthma exacerbation, PE. Suspect possible underlying undiagnosed COPD or asthma with symptoms, history of tobacco use CTA chest - negative for PE Doing better Transition from Unasyn to Augmentin 875 mg p.o. twice daily DC IV Solu-Medrol Continue Mucinex Anticipate discharge to home tomorrow (2) Hypokalemia: Plan: K: 3.4 on admission Replace and monitor (3) Hypertension: Plan: Continue lisinopril (4) Cerebral palsy: Plan: Uses wheelchair Continue gabapentin, tizanidine (5) Benign prostatic hyperplasia with urinary obstruction: Plan: Continue finasteride, silodosin - in ED required Renteria placement for retention, Renteria now removed and pt required straight cath - may need urology follow up DVT Prophylaxis Lovenox SQ Full Code as per discussion with pt Follows with Dixie Holguin PA-C for routine care (6) Acute urinary retention: Admission and Anticipated Discharge Date Admission Date: March 12, 2023 Subjective Follow-up for CPE exacerbation, aspiration pneumonia, etc. Seen resting in bed, comfortable, not in distress on 1 L of oxygen via nasal cannula States he feels better overall Breathing is improved, less cough No fevers or chills No other new symptoms Review of Systems Review of Systems: all noted and negative except for above Physical Exam Physical Exam: General- oriented x 3, not in distress, speaks in sentences with no effort or accessory muscle use Eyes- anicteric Neck- no JVD Lungs- clear breath sounds bilaterally, no rales/wheezes Heart- normal rate, regular rhythm; no murmurs Abdomen- normal bowel sounds, nondistended, soft, nontender Extremities- no pretibial edema, no calf tenderness Neuro- alert, oriented x 3; positive bilateral lower extremity weakness, no new gross focal neurologic deficits Skin- warm & dry Results & Data Results & Data Vital Signs (Past 12 Hours) Vital Signs Temp Pulse Pulse Pulse Resp BP Pulse Ox 03/19/23 20:00 36.7 C 89 18 157/94 H 96 03/19/23 15:27 37.0 C 78 18 161/78 H 96 03/19/23 14:47 81 03/19/23 11:25 36.8 C 73 18 164/95 H 93 O2 Del Method 03/19/23 20:00 Room Air 03/19/23 15:27 Room Air 03/19/23 14:47 03/19/23 11:25 Room Air all noted and reviewed including below
[2023-03-19] MEDS: MIRTAZAPINE TAB 15 MG TAB PO SCH (21:38)
[2023-03-19] MEDS: CETIRIZINE HCL 10 MG TABLET PO SCH (21:38)
[2023-03-19] MEDS: TAMSULOSIN HCL 0.4 MG CAP PO SCH (21:38)
[2023-03-20] MEDS ORDERED: AMOXICILLIN/CLAVULANATE 875 MG TAB PO SCH (08:00)
[2023-03-20] MEDS: GABAPENTIN 300 MG CAP PO SCH (08:11)
[2023-03-20] MEDS: guaiFENesin 600 MG TABCR PO SCH (08:11)
[2023-03-20] MEDS: lisinopril 20 MG TAB PO SCH (08:12)
[2023-03-20] MEDS: FINASTERIDE 5 MG TAB PO SCH (08:13)
--- NOTE | 2023-03-20 15:58 | Hospitalist Progress Note ---
Date of Service March 20, 2023 Assessment & Plan (1) Acute respiratory failure with hypoxia: Plan: Per previous attending notes with addendum: Patient is a 52-year-old male with PMH cerebral palsy, uses wheelchair, HTN, BPH presented to ER from PCP's office for SOB, ongoing cough and wheezing x months. Failed 3 courses outpatient doxycycline, course of prednisone. In PCP clinic noted to be SOB and hypoxic. In ER afebrile, 88% on RA up to 94% on 4L oxygen, P: 106. No leukocytosis, Lactate and procalcitonin WNL. ABG: pH: 7.43, pCO2:35, pO2: 84, HCO3: 23 Negative Biofire, SARS Cov 2 D-dimer:1060 DDX: bronchitis, COPD/asthma exacerbation, PE. Suspect possible underlying undiagnosed COPD or asthma with symptoms, history of tobacco use CTA chest - negative for PE Placed on IV Unasyn, Solu-Medrol, Mucinex Patient gradually improved Weaned off oxygen supplement Transition from Unasyn to Augmentin 875 mg p.o. twice daily x 3 more days to complete 7-day course Continue Mucinex x 3 more days As needed albuterol inhaler Discharge to home (2) Hypokalemia: Plan: Replaced (3) Hypertension: Plan: Continue lisinopril (4) Cerebral palsy: Plan: Uses wheelchair Continue gabapentin, tizanidine (5) Benign prostatic hyperplasia with urinary obstruction: Plan: Continue finasteride, silodosin DVT Prophylaxis Lovenox SQ Disposition Discharge to home Follow-up with PCP in 1 week (6) Acute urinary retention: Admission and Anticipated Discharge Date Admission Date: March 12, 2023 Subjective Follow-up for pneumonia, etc. Resting in bed, comfortable, sitting up States he feels fine overall Very minimal dry cough, no shortness of breath, sputum production, fevers or chills No chest pain, dizziness No other new symptoms States he is ready for discharge today Review of Systems Review of Systems: all noted and negative except for above Physical Exam Physical Exam: General- oriented x 3, not in distress, speaks in sentences with no effort or accessory muscle use Eyes- anicteric Neck- no JVD Lungs- clear breath sounds bilaterally, no wheezing, no crackles bilaterally Heart- normal rate, regular rhythm; no murmurs Abdomen- normal bowel sounds, nondistended, soft, nontender Extremities- no pretibial edema, no calf tenderness Neuro- alert, oriented x 3; no gross focal neurologic deficits Skin- warm & dry Results & Data Results & Data Vital Signs (Past 12 Hours) Vital Signs Temp Pulse Pulse Pulse Resp BP BP 03/20/23 10:04 36.7 C 60 78 20 153/91 H 140/68 03/20/23 07:40 03/20/23 06:00 69 03/20/23 07:40 03/20/23 07:37 36.7 C 60 20 153/91 H 03/20/23 04:12 36.4 C L 65 18 167/92 H Pulse Ox O2 Del Method O2 Flow Rate 03/20/23 10:04 97 03/20/23 07:40 Room Air 03/20/23 06:00 03/20/23 07:40 97 Room Air, Nasal Cannula 1 03/20/23 07:37 96 Nasal Cannula 1 03/20/23 04:12 92 Room Air all noted and reviewed including below
--- NOTE | 2023-03-20 16:05 | Discharge Summary ---
Discharge Summary Date of Service March 20, 2023 Notes For Next Care Provider Medication Changes From Visit Augmentin 875 mg twice daily x 3 days Mucinex 500 mg twice daily x 3 days Albuterol inhaler-as needed for shortness of breath Admission HPI Per Admitting Provider Patient is a 52-year-old male with PMH cerebral palsy, uses wheelchair, HTN, BPH presented to ER from PCP's office for SOB. History obtained from patient and chart review. Patient states for the last several months he has been having ongoing cough. Reports several months ago started with slight sore throat, nasal congestion, cough. Reports sore throat and nasal congestion have resolved. Cough has continued. Cough is productive of clear sputum. Per outpatient chart review seen at PCPs office 01/15/2023 for cough for several months and was started on doxycycline x 7 days and albuterol inhaler for suspected bronchitis. 01/27/23 given additional doxycycline course. Seen again on 02/13/2023 for cough, wheezing, nasal congestion. He was given doxycycline x10 days, prednisone taper, and had been using albuterol inhaler. Patient states despite these treatments cough has continued. He has been using albuterol inhaler 1-2 times a day with some improvement of cough however limited relief. H states he does not feel he is short of breath however has noted wheezing. He reports initially several months ago did not have wheezing however wheezing has progressed. In clinic today patient was noted to be short of breath, diffuse wheezing. It is reported patient's pulse ox in the high 80s and went up to 90% on 4 L. EMS was called and patient was given 2 DuoNebs in route. In ER 88% on RA up to 94% on 4L oxygen via NC. Patient given additional albuterol neb treatment in ER. Patient states feels like wheezing less. He states does not feel SOB but endorses has not noted SOB. Denies fever/chills, diaphoresis, N/V/D/C, [place], dizziness, syncope, vision changes, neck pain, CP, orthopnea, palpitations, hemoptysis, choking, otalgia, abdominal pain, paresthesias, extremity edema, rashes, urinary symptoms. History smoking 1/2ppd x 30 years, Quit 5 years ago Admission Exam Per Admitting Provider General: no apparent distress, WDWN Head: normocephalic, atraumatic Eyes: conjunctiva non-injected, anicteric ENT: normal inspection external ears, nose, mucous membranes moist Neck: supple, trachea midline Lungs: no apparent respiratory distress on 3L oxygen via NC, able to speak in sentences, +diffuse wheezing, no rhonchi/rales noted CV: RRR, no murmur, no pretibial edema Abd: normal BS, soft, non-tender Ext: no cyanosis, no calf tenderness Neuro: A&O x 3, LE weakness (chronic) no other focal deficits noted, normal affect Skin: warm, dry Principal Dx & Hospital Course #1 = Principal Diagnosis (1) Acute respiratory failure with hypoxia: (2) Hypokalemia: (3) Hypertension: (4) Cerebral palsy: (5) Benign prostatic hyperplasia with urinary obstruction: (6) Acute urinary retention: (1) Acute respiratory failure with hypoxia Pneumonia, possible aspiration related Plan: Per previous attending notes with addendum: Patient is a 52-year-old male with PMH cerebral palsy, uses wheelchair, HTN, BPH presented to ER from PCP's office for SOB, ongoing cough and wheezing x months. Failed 3 courses outpatient doxycycline, course of prednisone. In PCP clinic noted to be SOB and hypoxic. In ER afebrile, 88% on RA up to 94% on 4L oxygen, P: 106. No leukocytosis, Lactate and procalcitonin WNL. ABG: pH: 7.43, pCO2:35, pO2: 84, HCO3: 23 Negative Biofire, SARS Cov 2 D-dimer:1060 DDX: bronchitis, COPD/asthma exacerbation, PE. Suspect possible underlying undiagnosed COPD or asthma with symptoms, history of tobacco use CTA chest: 1. No pulmonary embolus or aortic dissection. 2. Bilateral lower lobe atelectasis with mild bronchiectasis. Mild biapical pleural thickening with subpleural scarring and mild subpleural emphysematous changes. 3. Remainder of the lung weston are clear with no acute cardiopulmonary disease. Placed on IV Unasyn, Solu-Medrol, Mucinex Patient gradually improved Weaned off oxygen supplement Speech therapist consulted Patient given instructions on aspiration precautions Transition from Unasyn to Augmentin 875 mg p.o. twice daily x 3 more days to complete 7-day course Continue Mucinex x 3 more days As needed albuterol inhaler Discharge to home (2) Hypokalemia: Plan: Replaced (3) Hypertension: Plan: Continue lisinopril (4) Cerebral palsy: Plan: Uses wheelchair Continue gabapentin, tizanidine (5) Benign prostatic hyperplasia with urinary obstruction: Plan: Continue finasteride, silodosin DVT Prophylaxis Lovenox SQ Disposition Discharge to home Follow-up with PCP in 1 week Discharge Exam General- oriented x 3, not in distress, speaks in sentences with no effort or accessory muscle use Eyes- anicteric Neck- no JVD Lungs- clear breath sounds bilaterally, no wheezing, no crackles bilaterally Heart- normal rate, regular rhythm; no murmurs Abdomen- normal bowel sounds, nondistended, soft, nontender Extremities- no pretibial edema, no calf tenderness Neuro- alert, oriented x 3; no gross focal neurologic deficits Skin- warm & dry Updated Medication List Medication Instructions Recorded Confirmed Type lisinopril 20 mg tablet 20 mg PO DAILY 01/16/20 03/12/23 History gabapentin 300 mg capsule 300 mg PO TID 01/26/20 03/12/23 History finasteride 5 mg tablet 5 mg PO DAILY #90 tabs 01/02/21 03/12/23 Rx silodosin 8 mg capsule 8 mg PO DAILY #90 caps 06/13/22 03/12/23 Rx albuterol sulfate 90 mcg/actuation 1 inh inhalation Q4H PRN shortness 03/12/23 Rx aerosol inhaler of breath or wheezing #6.7 grams levocetirizine 5 mg tablet 5 mg PO HS 03/12/23 03/12/23 History mirtazapine 15 mg tablet 15 mg PO HS 03/12/23 03/12/23 History tizanidine 2 mg tablet 1 mg PO Q6H PRN Muscle Spasm 03/12/23 03/12/23 History amoxicillin 875 mg-potassium 1 tab PO BIDM 3 days #6 tabs 03/20/23 Rx clavulanate 125 mg tablet guaifenesin 600 mg tablet, 600 mg PO Q12 3 days #6 tabs 03/20/23 Rx extended release 12 hr (Mucinex) Hospital Stay Data Consultations 03/12/23 13:40 ED Decision to Admit Stat Diagnostic Imagining Performed Laboratory Results WBC 10.84 K/ul (4.8-10.8) H 03/19/23 06:35 RBC 4.86 M/uL (4.70-6.10) 03/19/23 06:35 Hgb 14.1 g/dl (14.0-18.0) 03/19/23 06:35 Hct 41.4 % (42.0-52.0) L 03/19/23 06:35 MCV 85.2 fL (80.0-100.0) 03/19/23 06:35 MCH 29.0 pg (25.0-34.0) 03/19/23 06:35 MCHC 34.1 g/dL (32.0-36.0) 03/19/23 06:35 RDW Std Deviation 41.2 fL (36.4-46.3) 03/19/23 06:35 RDW Coeff of Tha 13.3 % (11.5-14.5) 03/19/23 06:35 Plt Count 264 K/uL (130-400) 03/19/23 06:35 MPV 10.2 fL (9.4-12.4) 03/19/23 06:35 Immature Gran % (Auto) 0.5 % 03/14/23 05:24 Neut % (Auto) 92.7 % 03/14/23 05:24 Lymph % (Auto) 4.1 % 03/14/23 05:24 Hartley % (Auto) 2.6 % 03/14/23 05:24 Eos % (Auto) 0.0 % 03/14/23 05:24 Baso % (Auto) 0.1 % 03/14/23 05:24 Neut # (Auto) 17.23 K/uL (1.40-6.50) H 03/14/23 05:24 Lymph # (Auto) 0.76 K/uL (1.2-3.4) L 03/14/23 05:24 Hartley # (Auto) 0.49 K/uL (0.11-0.59) 03/14/23 05:24 Eos # (Auto) 0.00 K/uL (0-0.50) 03/14/23 05:24 Baso # (Auto) 0.02 K/uL (0-0.2) 03/14/23 05:24 Immature Gran # (Auto) 0.09 K/uL (0.01-0.20) 03/14/23 05:24 Echinocytes 1+ 03/14/23 05:24 D-Dimer 1060 ug/L FEU (0-500) H* 03/12/23 15:28 ABG pH 7.43 (7.35-7.45) 03/12/23 15:28 ABG pCO2 35 mmHg (35-46) 03/12/23 15:28 ABG pO2 84 mmHg (80-95) 03/12/23 15:28 ABG HCO3 23 mmol/L (19-24) 03/12/23 15:28 ABG O2 Saturation 98.5 % (90-95) H 03/12/23 15:28 ABG Base Excess -0.6 mEq/L (-9-1.8) 03/12/23 15:28 Charlie Test POS (Pos) 03/12/23 15:28 Oxygen Given 3 L 03/12/23 15:28 Sodium 138 mmol/L (136-145) 03/19/23 06:35 Potassium 3.5 mmol/L (3.5-5.1) 03/19/23 06:35 Chloride 106 mmol/L (98-107) 03/19/23 06:35 Carbon Dioxide 26 mmol/L (21-32) 03/19/23 06:35 Anion Gap 6 (3-11) 03/19/23 06:35 BUN 18 mg/dl (6-23) 03/19/23 06:35 Creatinine 0.73 mg/dl (0.6-1.4) 03/19/23 06:35 Est Cr Clr Drug Dosing 104.4 ml/min 03/19/23 06:35 Est GFR ( Amer) 121.9 ml/min 03/19/23 06:35 Est GFR (Non-Af Amer) 105.2 ml/min 03/19/23 06:35 BUN/Creatinine Ratio 24.7 (10-20) H 03/19/23 06:35 Glucose 142 mg/dl (70-99(Fasting)) H 03/19/23 06:35 Lactate 1.2 mmol/L (0.4-2.0) 03/12/23 11:07 Calcium 7.9 mg/dl (8.6-10.3) L 03/19/23 06:35 Phosphorus 2.4 mg/dl (2.5-4.9) L 03/19/23 06:35 Magnesium 2.2 mg/dl (1.7-2.4) 03/19/23 06:35 Total Bilirubin 0.8 mg/dl (0.2-1.0) 03/12/23 10:35 Direct Bilirubin 0.2 mg/dl (0-0.2) 03/12/23 10:35 AST 13 U/L (13-39) 03/12/23 10:35 ALT 12 U/L (7-52) 03/12/23 10:35 Alkaline Phosphatase 98 U/L (34-104) 03/12/23 10:35 Troponin I High Sens 3.6 pg/ml (0-20) 03/12/23 10:35 Total Protein 7.5 gm/dl (6.0-8.3) 03/12/23 10:35 Albumin 4.4 gm/dl (3.4-5.0) 03/12/23 10:35 Procalcitonin < 0.05 ng/ml (0-0.5) 03/12/23 10:35 Urine Color Yellow 03/12/23 20:10 Urine Appearance Clear (Clear) 03/12/23 20:10 Urine pH 5.5 (4.5-7.5) 03/12/23 20:10 Ur Specific [place] 1.022 (1.000-1.030) 03/12/23 20:10 Urine Protein Negative (Negative) 03/12/23 20:10 Urine Glucose (UA) 3+ (Negative) H 03/12/23 20:10 Urine Ketones 3+ (Negative) H 03/12/23 20:10 Urine Blood Negative (Negative) 03/12/23 20:10 Urine Nitrite Negative (Negative) 03/12/23 20:10 Urine Bilirubin Negative (Negative) 03/12/23 20:10 Urine Urobilinogen Negative (Negative) 03/12/23 20:10 Ur Leukocyte Esterase Negative (Negative) 03/12/23 20:10 Adenovirus (PCR) Not Detected (NotDetected) 03/12/23 14:15 B. pertussis DNA (PCR) Not Detected (NotDetected) 03/12/23 14:15 B.parapertussis DNA PCR Not Detected (NotDetected) 03/12/23 14:15 C. pneumoniae DNA (PCR) Not Detected (NotDetected) 03/12/23 14:15 Coronavirus OC43 (PCR) Not Detected (NotDetected) 03/12/23 14:15 Coronavirus HKU1 (PCR) Not Detected (NotDetected) 03/12/23 14:15 Coronavirus 229E (PCR) Not Detected (NotDetected) 03/12/23 14:15 SARS-CoV-2 (PCR) Not Detected (NotDetected) 03/12/23 14:15 Coronavirus NL63 (PCR) Not Detected (NotDetected) 03/12/23 14:15 Human Metapneumovir PCR Not Detected (NotDetected) 03/12/23 14:15 Influenza Type A (PCR) Not Detected (NotDetected) 03/12/23 14:15 Influenza Type B (PCR) Not Detected (NotDetected) 03/12/23 14:15 M. pneumoniae (PCR) Not Detected (NotDetected) 03/12/23 14:15 Parainfluenza 1 (PCR) Not Detected (NotDetected) 03/12/23 14:15 Parainfluenza 2 (PCR) Not Detected (NotDetected) 03/12/23 14:15 Parainfluenza 3 (PCR) Not Detected (NotDetected) 03/12/23 14:15 Parainfluenza 4 (PCR) Not Detected (NotDetected) 03/12/23 14:15 RSV (PCR) Not Detected (NotDetected) 03/12/23 14:15 Entero/Rhino (PCR) Not Detected (NotDetected) 03/12/23 14:15 SARS-CoV-2, RNA, NAAT NEGATIVE (NEGATIVE) 03/12/23 10:46 Impressions Chest X-Ray 03/12/23 10:35 XR chest 1V portable HISTORY: 52 years-old Male Sepsis acute sepsis COMPARISON: None TECHNIQUE: AP view of the chest FINDINGS: Mild right hemidiaphragmatic elevation. Cardiomediastinal and hilar silhouettes are within normal limits. No pneumothorax, pleural effusion, airspace consolidation or pulmonary edema. Bones appear grossly intact. IMPRESSION: No acute process. ACT 112: Negative or not required by law. The above report was generated using voice recognition software. It may contain grammatical, syntax or spelling errors. Electronically signed by: Gabriel Garcia M.D. 03/12/2023 10:56 AM Chest CTA 03/12/23 16:31 Exam(s): CTA CHEST IV Amt: 117 ml optiray 350 EXAM: CT Angiography Chest With Intravenous Contrast CLINICAL HISTORY: Reason for exam: PE. TECHNIQUE: Axial computed tomographic angiography images of the chest with intravenous contrast. CTDI is 17.15 mGy and DLP is 553.85 mGy-cm. Automated exposure control was utilized for the study. A dose lowering technique was utilized adhering to the principles of ALARA. MIP reconstructed images were created and reviewed. COMPARISON: None. FINDINGS: Pulmonary arteries: Unremarkable. Normal aorta with no signs of dissection or aneurysm. Normal enhancement of the pulmonary arteries with no filling defect to suggest pulmonary embolus. Aorta: No acute findings. No thoracic aortic aneurysm. Lungs: Bilateral lower lobe atelectasis, right more than left. Mild bilateral lower lobe bronchiectasis . No mass. Pleural space: Mild biapical pleural thickening with subpleural scarring. Mild biapical subpleural emphysematous/cystic changes. . No significant effusion. No pneumothorax. Heart: Mild to moderate cardiomegaly. No significant pericardial effusion. No evidence of RV dysfunction. Bones/joints: No acute fracture. No dislocation. Soft tissues: Unremarkable. Lymph nodes: Unremarkable. No enlarged lymph nodes. Other findings: Nonspecific degenerative disease of the spine. Visualized upper abdominal structures are unremarkable. IMPRESSION: 1. No pulmonary embolus or aortic dissection. 2. Bilateral lower lobe atelectasis with mild bronchiectasis. Mild biapical pleural thickening with subpleural scarring and mild subpleural emphysematous changes. 3. Remainder of the lung weston are clear with no acute cardiopulmonary disease. Electronically signed by: Amelia Celeste MD 03/12/23 23:03 PM Pending Results Patient Have Any Pending Studies at Discharge: No Discharge Instructions Given to Patient (Per Discharging Provider) PLEASE REFER TO YOUR NEW MEDICATION LIST AND FOLLOW INSTRUCTIONS CAREFULLY. YOUR NEW MEDICATIONS INCLUDE: Augmentin-antibiotic for pneumonia Albuterol inhaler-as needed for shortness of breath Mucinex-for cough Take a probiotic daily and include yogurt in your daily diet for at least 2 weeks. Drink plenty of water. PLEASE CALL YOUR PRIMARY CARE PHYSICIAN OR RETURN TO THE ER IF WITH WORSENING OF SYMPTOMS, INCLUDING Shortness of breath, cough, fevers or chills, etc. FOLLOW UP WITH PRIMARY CARE PHYSICIAN OUTLINED ABOVE. Total Time Total Time Spent Total Time Spent (In Minutes): >30 minutes
== END 2023-03-20 10:25 | disposition home or self-care (01) | DRG 177 ==
LOC: ED 10:17 → SUATTDRO 14:31 → 2W 14:31 → 2N 03-14 15:16